=== PATIENT | female | born 1995 | race Caucasian/White ===

== ENCOUNTER 2020-01-10 22:09 | Inpatient (IN) | payer MEDICAID, SELFPAY ==
[2020-01-10 20:23] VITALS: BMI 30.5
[2020-01-10 20:28] LABS: Microscopic, Urine URINE MICROSCOPIC (MICROSCOPIC)
[2020-01-10 20:29] LABS: Appearance,Urine CLEAR (Clear); Bilirubin,Urine Negative (Negative); Blood, Urine 1+ (Negative); Color,Urine YELLOW (Yellow); Glucose,Urine (UA) Negative (Negative); Ketones,Urine Negative (Negative); Leukocyte Esterase,Urine 1+ (Negative); Nitrate,Urine Negative (Negative); PH,Urine 6.5 (5.0-8.5); Protein,Urine TRACE (Negative); Specific Gravity, Urine 1.025 (1.005-1.030); Urobilinogen,Urine 0.2 EU/dl (0.2)
[2020-01-10 20:37] LABS: Bacteria,Urine 2+ /lpf; Mucus,Urine 1+ /lpf
[2020-01-10 20:43] LABS: Barbiturates Screen,Urine Negative ng/ml (<200)
[2020-01-10 20:44] LABS: Benzodiazepines Screen,Urine Negative ng/ml (<200)
[2020-01-10 20:45] LABS: Amphetamine/Metha Screen,Urine Negative ng/ml (<1000); Cocaine Screen,Urine Negative ng/ml (<300)
[2020-01-10 20:46] LABS: Methadone Screen,Urine Negative ng/ml (<300)
[2020-01-10 20:47] LABS: Cannabinoid Screen,Urine Negative ng/ml (<50); Opiate Screen,Urine Negative ng/ml (<300)
[2020-01-10 20:48] LABS: Phencyclidine Screen,Urine Negative ng/ml (<25)
[2020-01-10 21:50] LABS: Basophils # 0.1 K/mm3 (0-0.2); Basophils % 0.6 % (0.1-2.0); Eosinophils % 0.3 % (0.1-12.0); Hematocrit 34.2 % (37.0-47.0); Hemoglobin 10.9 g/dL (12.2-16.2); Lymphocytes # 1.8 K/mm3 (0.7-4.5); Lymphocytes % 14.6 % (10-50); Mean Corpuscular HGB Conc 31.9 g/dL (31.8-35.4); Mean Corpuscular Hemoglobin 28.7 pg (27.0-31.2); Mean Corpuscular Volume 89.8 fl (81-99); Mean Platelet Volume 8.8 fl (7.4-10.4); Monocytes # 0.6 K/mm3 (0.1-1.0); Neutrophils # 9.9 K/mm3 (1.8-7.8); Neutrophils % 79.5 % (37.0-80.0); Platelet Count 224 K/mm3 (142-424); Red Blood Count 3.81 M/mm3 (4.20-5.40); Red Cell Distribution Width 14.9 % (11.5-17.5); White Blood Count 12.5 K/mm3 (4.8-10.8)
[2020-01-10 21:54] LABS: Chloride 103 mmol/L (98-107); Potassium 3.8 mmoL/L (3.5-5.1); Sodium 134 mmol/L (136-145)
[2020-01-10 21:57] LABS: Alanine Aminotransferase 13 U/L (12-78); Anion Gap 10.8 mEq/L (5-15); Aspartate Amino Transferase 28 U/L (14-36); Blood Urea Nitrogen 7 mg/dl (7-17); Calcium 8.9 mg/dl (8.4-10.2); Carbon Dioxide 24 mmol/L (22.0-30.0); Creatinine Clearance Estimated 225 mL/min (50-200); Estimated Glomerular Filt Rate 154 ml/min (>60); GFR (African American) 187 ML/MIN (>60); Glucose 112 mg/dl (74-100); Uric Acid 2.3 mg/dl (2.5-6.2)
[2020-01-10 22:07] LABS: Activated Partial Thrombo Time 22.2 seconds (23.6-34.0); Fibrinogen 434 mg/dL (204-500); Prothrombin Time 9.4 seconds (9.4-11.8)
[2020-01-10 22:23] LABS: D-Dimer 1690 ng/mL (0-400)
[2020-01-11 01:32] VITALS: BP 145/83; PULSE 128; RESP 18; TEMP 36.8; O2SAT 99; BMI 30.5
--- NOTE | 2020-01-11 09:50 | HMH.OBAPHP ---
OB - H&P: HPI Antepartum - History of Present Illness Chief complaint: labor, history of -induced hypertension. Comments: She is a 24-year-old 6 para 2 aborta 3 who is 37+ weeks gestational age. She came in with regular contractions every 2 minutes. She has been followed at [facility] and they initially thought she might have hydrocephalus with increased ventricular size and the baby's brain. She was however seen at and they said that the anatomy scan was perfectly normal and there was no evidence of ventriculomegaly. She has had labor and went to [place] and she said they did not seem to want to do anything for her. As a result of that she had an appointment with me today. She arrived last night having regular contractions every 2 minutes. We gave her IV fluids as well as a shot of Brethine and her contractions continued. As result of that we elected to watch her overnight. She has changed her cervix from 2-3 to 4+ centimeters dilated. As result of her changes in the cervix we are going to deliver her. She has had a previous early delivery. She has had a history of PIH. Her blood pressure is slightly elevated on arrival. Laboratory investigations were normal. - History of Present Criteria for establishing EDC:: LMP confirmed by 2nd trimester US care: good care Ultrasounds: normal mid trimester US Obstetrical complications: gestational hypertension Medical complications: other - Labs Blood type: O (+) positive Rubella: immune RPR/VDRL: nonreactive GBS status: negative HBsAG: negative [facility]H History *Have you ever received a pneumonia vaccine?: No *Have you received a flu vaccine this season?: No Other Surgeries: No: - *Social History Alcohol Intake: never Substance Use Type: denies use *Occupational Status:: unemployed *Travel in the last 8 weeks: None Family Hx:: No significant family history Para: 2 Review of Systems - Review of Systems Review of systems:: pertinent systems reviewed and negative unless documented below Meds Home Medications Medication Instructions Recorded Confirmed Type Multivitamin [Flintstones] 1 tab PO DAILY 01/10/20 01/10/20 History Allergies Allergy/AdvReac Type Severity Reaction Status Date / Time citalopram [From Celexa] Allergy Intermediate Verified 01/10/20 20:23 OB - H&P: Exam - Physical Exam Vital signs: Temp Pulse Resp BP Pulse Ox 98.3 F 128 H 18 145/83 H 99 01/11/20 01:32 01/11/20 01:32 01/11/20 01:32 01/11/20 01:32 01/11/20 01:32 - Constitutional no acute distress - Routine HEENT Exam Head: Present: normocephalic Eye: Present: EOMI, PERRL ENT: Present: mucous membranes moist - Routine Neck Exam Present: supple, full ROM - Routine Respiratory Exam Absent: accessory muscle use (good air entry bilaterally), respiratory distress, wheezes, crackles - Routine Cardiovascular Exam Present: RRR. Absent: murmur - Routine Abdominal Exam Present: soft, normoactive bowel sounds. Absent: tenderness, distended, guarding - Routine Rectal Exam Patient deferred: visual exam, digital exam - Routine Exam Patient deferred: external exam, groin exam, perineal exam - Routine Extremities Exam Present: full ROM. Absent: cyanosis, edema - Routine Skin Exam Present: intact. Absent: cyanosis - Routine Neurological Exam Present: alert, oriented X3 - Routine Psychiatric Exam Present: normal affect OB - Results - Labs Labs: Short CBC 01/10/20 Range/Units 21:23 WBC 12.5 H (4.8-10.8) K/mm3 Hgb 10.9 L (12.2-16.2) g/dL Hct 34.2 L (37.0-47.0) % Plt Count 224 (142-424) K/mm3 BMP 01/10/20 21:23 Sodium 134 L Potassium 3.8 Chloride 103 Carbon Dioxide 24 BUN 7 Creatinine 0.50 L Glucose 112 H Calcium 8.9 Liver Function 01/10/20 Range/Units 21:23 AST 28 (14-36) U/L ALT 13 (12-78) U
--- NOTE | 2020-01-11 11:20 | HMH.ANESCL ---
[facility] Anesthesia Checklist - Patient Identification Patient Identification: Arm Band - Structural Data Admitted From: Inpatient Planned Operative Procedure/s: labor epidural Consent for Planned Operative Procedure(s) Verified: Yes Verified Documents: Surgical Consent, History and Physical - NPO Status Verified Time NPO: 00:00 - Additional verifications Anesthesia Reactions: No - Airway Assessment C-Spine Mobility Assessed: Yes TMJ Mobility Assessed: Yes Dentition: Good Dentition - Neurological Assessment Level of Consciousness: Awake, Alert - Anesthesia Plan Anesthesia Risk discussed: Yes Anesthesia Plan: Verified ASA Class: II Anesthesia Type: Epidural [facility] History I have reviewed the patient's past medical history: Yes *Have you ever received a pneumonia vaccine?: No *Have you received a flu vaccine this season?: No Anesthesia experience/problems:: nac Other Surgeries: No: - *Social History Alcohol Intake: never Substance Use Type: denies use *Occupational Status:: unemployed *Travel in the last 8 weeks: None Family Hx:: No significant family history Para: 2
--- NOTE | 2020-01-11 11:50 | HMH.LABNOT ---
Labor Note - Subjective: Date: 01/11/20 Time: 11:30 regular contraction - Objective: NST:: Reactive Contractions:: every 2-3 minutes Cervical Dilation:: 6-7 Effacement:: 75% Station: -2 Membranes: artificially ruptured - Fetus: Monitoring?: Yes monitoring type:: Internal - Assessment: Labor progressing?: Yes Cephalopelvic disproportion?: No Patient Problems: All Active Problems labor in third trimester (Acute) History of induced hypertension (Acute) Normal delivery (Acute) - Plan: Anesthesia for epidural?: Yes Continue to labor down?: Yes Plan for ?: No Continue to monitor?: Yes Start pushing?: No
--- NOTE | 2020-01-11 13:48 | HMH.LABNOT ---
Labor Note - Subjective: Date: 01/11/20 Time: 13:48 regular contraction - Objective: NST:: Reactive Contractions:: every 2-3 minutes Cervical Dilation:: 9-10 Effacement:: 100% Station: 0 Membranes: artificially ruptured - Fetus: Monitoring?: Yes monitoring type:: Combination - Assessment: Labor progressing?: Yes Cephalopelvic disproportion?: No Patient Problems: All Active Problems labor in third trimester (Acute) History of induced hypertension (Acute) Normal delivery (Acute) - Plan: Anesthesia for epidural?: Yes Continue to labor down?: Yes Plan for ?: No Continue to monitor?: Yes Start pushing?: Yes Continue pushing?: Yes
--- NOTE | 2020-01-11 14:17 | HMH.DN ---
- Delivery Note Delivery Date:: 01/11/20 Delivery Time:: 14:09 Anesthesia Type: Epidural Was labor medically induced?: No Induction method: none delivered prior to 39 weeks?: Yes Justification for early elective delivery:: Active Labor, Gestational Hypertension Infant Gender: Male at 1 minute: 8 at 5 minutes: 9 AF:: clear Delivery Procedure:: She is a 24-year-old 6 para 2 aborta 3 who is 37 weeks gestational age. She came in in early labor and progressed overnight. She went from 3 to 4 cm. She had been 2 cm last week in [place]. As result of that we elected to augment her labor. She was started on IV oxytocin had her membranes ruptured. She progressed under labor epidural to full dilation and delivered spontaneously a liveborn male child at 2:09 PM in the afternoon of January 11, 2020. On deliver the head it was noted that there was a loose nuchal cord. This was easily reduced followed by the anterior shoulder and the rest the mid body atraumatically. The oropharynx and nasopharynx were bulb suctioned. The baby was vigorous. We allowed the cord to continue to pulsate for approximately 1 minute. The cord was then doubly clamped and cut and the was handed off to the nurses who assigned Apgars of 8 at 1 minute and 9 at 5 minutes. We then obtained cord blood as well as cord pH. The patient currently pending. Using gentle traction on the cord and countertraction the fundus I was able to easily deliver the placenta intact at 2:14 PM. Had a normal three-vessel cord. There were no perineal or vaginal lacerations. She has O Rh+ blood, she is rubella immune and was group B streptococcus negative. She plans to breast-feed. Her consolidator is Dr. Lafleur. Estimated blood loss was approximately 400 cc. Placental Delivery Description: Spontaneous
[2020-01-11 14:24] LABS: Cord Blood PH 7.15 (7.35-7.45)
[2020-01-12 07:34] LABS: Hemoglobin 10.5 g/dL (12.2-16.2)
[2020-01-12 08:00] VITALS: BP 122/69; PULSE 78; RESP 18; TEMP 37; O2SAT 98
--- NOTE | 2020-01-12 08:26 | HMH.ACPN2 ---
Internal Medicine - PN: Subj *Date: 01/12/20 *Time: 08:26 Interval history: She is doing well this morning. She is eating and drinking and ambulating. She is breast-feeding. Her lochia is normal. She does have some swelling in her perineum. Exam Vital signs and Labs for Last 24 Hours: Temp Pulse Resp BP Pulse Ox 98.6 F 78 18 122/69 98 01/12/20 08:00 01/12/20 08:00 01/12/20 08:00 01/12/20 08:00 01/12/20 08:00 Laboratory Results - last 24 hr 01/11/20 14:20: Cord ABG pH 7.15 L* 01/12/20 06:35: Hgb 10.5 L, Hct 33.0 L I & O for Last 24 hours: Intake & Output 01/09/20 01/10/20 01/11/20 01/12/20 11:59 11:59 11:59 11:59 Weight 178 lb Microbiology Reports for the Last 24 Hours: Microbiology 01/10/20 19:32 Urine,Clean Catch Urine Culture - Preliminary NO GROWTH AFTER 24 HOURS - Constitutional no acute distress - *Routine HEENT Exam Head: Present: normocephalic Assessment and Plan (1) labor in third trimester Current visit: Yes Status: Acute Category: Medical Code(s): O60.03 - labor without delivery, third trimester (2) History of induced hypertension Current visit: Yes Status: Acute Category: Medical Code(s): Z87.59 - Personal history of other complications of , childbirth and the puerperium (3) Normal delivery Current visit: Yes Status: Acute Category: Medical Code(s): O80 - Encounter for full-term uncomplicated delivery - Assessment and plan all Dx Assessment and Plan for all problems:: She is doing very well. We will plan to send her home tomorrow.
[2020-01-12 12:18] VITALS: BP 119/71; PULSE 79; RESP 18; TEMP 36.8; O2SAT 100
--- NOTE | 2020-01-12 13:32 | SW/DCPLANNER ---
RECEIVED REFERRAL FOR THIS PATIENT THAT HAS BEEN SEEING 2 DIFFERENT OB DOCTORS AND WAS INCONSISTENT WITH HER HISTORY AND HAS ONLY HAD 4 VISITS TO .. PATIENT HAS BEEN TO [facility] AND THEN WAS IN [place] AND HAS NOW DELIVERED HERE AT [facility].. SHE DELIVERED A LIVE BORN MALE, SHE HAS 3 OTHER CHILDREN, 2 FOUR YRS OLDS, 1 YR OLD AND NOW A . SHE STATED SHE IS AND BOTH INFANT AND PATIENTS UDS WERE NEGATIVE. A CORD WAS COLLECTED AND SENT OFF TO LAB TO CHECK FOR ANY TYPE OF DRUGS.. PATIENT STATED SHE DOES NOT GET WIC SERVICES AND PLANS TO BREASTFEED. SHE SAID SHE HAS EVERYTHING SHE NEEDS, CARSEAT, CLOTHES AND A BED FOR THE INFANT TO SLEEP IN... I HAVE ENCOURAGED HER TO SIGN UP FOR WIC SERIVCES SINCE SHE HAS ANOTHER SMALL CHILD....I DID MAKE A REPORT TO [facility] AND SPOKE WITH JOSE AND ID # [id number].. I WILL FOLLOW UP WITH [facility] TO SEE IF CASE WAS ACCEPTED PRIOR TO DISCHARGE...
[2020-01-12 19:38] VITALS: BP 118/66; PULSE 81; RESP 18; TEMP 36.8; O2SAT 98
[2020-01-13 00:15] VITALS: BP 120/77; PULSE 71; RESP 18; TEMP 36.8; O2SAT 99
[2020-01-13 03:50] VITALS: BP 109/65; PULSE 75; RESP 18; TEMP 37.1; O2SAT 98
[2020-01-13 07:30] VITALS: BP 122/74; PULSE 58; RESP 18; TEMP 36.7; O2SAT 100
--- NOTE | 2020-01-13 09:25 | P.DS_ITS ---
General - General Admission date:: 01/10/20 Discharge date: 01/13/20 HPI HPI: She is a 24-year-old 6 now para 3 aborta 3 who was 37+ weeks gestational age. She came in in active labor. Hospital Course Hospital Course: She was admitted in active labor and we tried to stop her labor but despite tocolytics she progressed. Overnight she progressed and as result of that we elected to augment her labor. She has been followed at as well as [facility]. She has not seen me prior to this. On the day of admission she had an appointment with me. She was started on IV oxytocin had her membranes ruptured and progressed to full dilation. She delivered spontaneously a liveborn male child at 2:04 PM in the afternoon of January 11, 2020. Baby weighed 6 pounds 14 ounces and was 18-1/2 inches long. He had Apgars of 8 at 1 minute and 9 at 5 minutes. She has done well and has remained afebrile third hospitalization. She is eating and drinking and ambulating. She is breast-feeding. Her lochia is normal. She has O Rh positive blood. She is rubella immune and was group B streptococcus negative. Her glass beveller Dr. Lafleur. She is discharged home to follow-up with me in approximately 2 weeks time. She will continue with her vitamins and iron. She was given the usual instructions with respect to limiting her activity, driving and sexual activity. Her condition on discharge is stable. Rhogam Administration: Not Indicated Objective Vital signs: Temp Pulse Resp BP Pulse Ox 98.0 F 58 L 18 122/74 100 01/13/20 07:30 01/13/20 07:30 01/13/20 07:30 01/13/20 07:30 01/13/20 07:30 no acute distress - *Routine HEENT Exam Head: Present: normocephalic Eye: Present: EOMI, PERRL ENT: Present: mucous membranes moist DS: Diagnosis - Discharge Diagnosis (1) labor in third trimester Status: Acute (2) History of induced hypertension Status: Acute (3) Normal delivery Status: Acute Discharge Plan - Patient Discharge Instructions ACTIVITY: No heavy lifting DIET: continue same diet Additional Instructions: nothing in the vagina for 6 weeks, no strenuous activity or heavy lifting Patient Instructions: Depression, Hemorrhage, DI for Labor and Delivery, Vaginal , DI for Pre-eclampsia, Preventing the Spread of Coronavirus Discharge Instructions - Follow up Plan Follow up with: Russel Rea MD [Primary Care Provider] - Disposition: Home, Self-[facility] Medications: Home Medications Medication Instructions Recorded Confirmed Type Multivitamin [Flintstones] 1 tab PO DAILY 01/10/20 01/10/20 History Prescriptions/Medication Reconciliation: Continued Multivitamin [Flintstones] 1 tab PO DAILY - Problem Reconciliation Problems Reviewed?: Yes
== END 2020-01-13 11:10 | disposition home or self-care (01) | DRG 807 ==
LOC: OBOUT 22:14 → OB 22:14
PROVIDERS: Admitting Provider Nurse Practitioner Obstetrics & Gynecology; PCP Nurse Practitioner Obstetrics & Gynecology; Visit Provider Nurse Practitioner Obstetrics & Gynecology
DX: O69.81X0 Labor and delivery complicated by cord around neck, without compression, not applicable or unspecified (principal); Z37.0 Single live birth; Z3A.37 37 weeks gestation of pregnancy; O13.3 Gestational [pregnancy-induced] hypertension without significant proteinuria, third trimester
CPT/HCPCS: 59409; 36415; 59025; 80048; 80305; 81001; 82800; 84450; 84460; 84550; 85014; 85018; 85025; 85378; 85384; 85610; 85730; 86850; 87086; 94761; 96360; C1758

== ENCOUNTER → 2021-08-27 17:56 | Outpatient (CLI) | payer MEDICAID, SELFPAY ==
[2021-08-30 16:23] LABS: Neisseria gonorrhoeae, NAA Negative (Negative)
--- NOTE | 2021-09-05 16:08 | INFXCTL.NOTE ---
Confirmed with Dr. Rea's office, patient rec'd treatment for positive chlamydia: azithromycin 1000mg .
== END ==
PROVIDERS: Visit Provider Nurse Practitioner Obstetrics & Gynecology
DX: Z72.51 High risk heterosexual behavior (principal)
CPT/HCPCS: 87491; 87591

== ENCOUNTER → 2022-03-04 14:26 | Outpatient (CLI) | payer MEDICAID, SELFPAY ==
--- NOTE | 2022-03-04 14:35 | US_ITS ---
FINAL REPORT CLINICAL HISTORY: IUD Placement FINDINGS: Transvaginal sonographic images of the pelvis were obtained. The uterus measures 8.4 x 5.8 x 4.5 cm. The endometrium measures 7 mm, which is within normal limits. An IUD is present the uterus. No uterine masses identified. The right ovary measures 3.3 cm in length and left ovary measures 2.7 cm in length. Normal blood flow seen to the ovaries. Small follicles are present. There is no evidence of free fluid. There is no evidence of a gestational sac. IMPRESSION: IUD is present within the uterus. No evidence of a gestational sac. Reviewed, Interpreted and Dictated by Hadley Lopez III, MD Transcribed by Ruba Ge Authenticated and [facility]
[2022-03-04 16:29] LABS: HCG,Quantitative < 2 mIU/ml (0-5.42)
== END ==
PROVIDERS: PCP Pediatrics; Visit Provider Obstetrics & Gynecology
DX: R10.2 Pelvic and perineal pain (principal); Z32.01 Encounter for pregnancy test, result positive
CPT/HCPCS: 36415; 76830; 84702

== ENCOUNTER 2024-04-15 16:40 | Outpatient (CLI) | payer MEDICAID, SELFPAY | END 2024-04-15 23:59 | disposition home or self-care (01) | LOC: LAB.DROPOF 16:40 | PROVIDERS: PCP Obstetrics & Gynecology; Visit Provider Obstetrics & Gynecology | DX: Z34.90 Encounter for supervision of normal pregnancy, unspecified, unspecified trimester (principal) | CPT/HCPCS: 87086 ==

== ENCOUNTER 2024-04-22 14:58 | Outpatient (CLI) | payer MEDICAID, SELFPAY ==
--- NOTE | 2024-04-22 15:07 | US_ITS ---
PROCEDURE: US OB <= 14 WEEKS FETUS CLINICAL INDICATION: Dates and confirm viability COMPARISON: US US TRANSVAGINAL from 03/04/2022 FINDINGS: Transvaginal sonographic images of the pelvis were obtained. From her last menstrual period she is 7weeks. An intrauterine gestational sac is present with a pole with a crown-rump length of 0.5cm This correlates to a gestational age of 6weeks 2days. heart tones are present with an FHR of 115bpm. Yolk sac is noted. The yolk sac measures 3.4mm. The right ovary is seen and appears normal. There are multiple small peripheral follicles. The left ovary is seen and appears normal. Multiple small follicles. Likely collapsed corpus luteum on the left ovary. There is no fluid in the cul-de-sac. IMPRESSION: 1. Viable fetus within the uterine cavity. There is heart rate activity. 2. The fetus measures 6 weeks 2 days. 3. Both ovaries are seen and appear normal. They have multiple small follicles. 4. Her due date should be revised based on this ultrasound. Her revised MARIA will be December 14, 2024. Dictated by: Russel Rea MD 04/23/2024 08:33 Russel Rea MD in [place] 04/23/2024 08:33
== END 2024-04-22 23:59 | disposition home or self-care (01) ==
LOC: RAD 14:59
PROVIDERS: Visit Provider Obstetrics & Gynecology
DX: O36.80X0 Pregnancy with inconclusive fetal viability, not applicable or unspecified (principal)
CPT/HCPCS: 76801

== ENCOUNTER 2024-05-11 10:28 | Outpatient (CLI) | payer MEDICAID, SELFPAY ==
[2024-05-11 11:08] LABS: Basophils # 0.1 K/mm3 (0-0.2); Basophils % 0.5 % (0.1-2.0); Eosinophils # 0.1 K/mm3 (0.0-0.4); Eosinophils % 1.3 % (0.1-12.0); Hematocrit 39.2 % (37.0-47.0); Hemoglobin 12.9 g/dL (12.2-16.2); Lymphocytes # 1.9 K/mm3 (0.7-4.5); Mean Corpuscular HGB Conc 32.9 g/dL (31.8-35.4); Mean Corpuscular Hemoglobin 31.2 pg (27.0-31.2); Mean Corpuscular Volume 95.1 fl (81-99); Mean Platelet Volume 8.2 fl (7.4-10.4); Monocytes # 0.3 K/mm3 (0.1-1.0); Monocytes % 3.5 % (1.7-9.3); Neutrophils # 6.6 K/mm3 (1.8-7.8); Neutrophils % 73.7 % (37.0-80.0); Platelet Count 247 K/mm3 (142-424); Red Blood Count 4.12 M/mm3 (4.20-5.40); Red Cell Distribution Width 13.4 % (11.5-17.5); White Blood Count 8.9 K/mm3 (4.8-10.8)
[2024-05-11 11:53] LABS: Albumin Level 4.3 g/dl (3.5-5.0); Chloride 106 mmol/L (98-107); Potassium 4.1 mmoL/L (3.5-5.1); Sodium 134 mmol/L (136-145)
[2024-05-11 11:56] LABS: Alanine Aminotransferase 12 U/L (12-78); Albumin/Globulin Ratio 1.4 (1.1-1.8); Alkaline Phosphatase 62 U/L (38-126); Anion Gap 10.1 mEq/L (5-15); Aspartate Amino Transferase 25 U/L (14-36); Bilirubin,Total 0.7 mg/dl (0.2-1.3); Blood Urea Nitrogen 9 mg/dl (7-17); Carbon Dioxide 22 mmol/L (22.0-30.0); Estimated Glomerular Filt Rate 100 ml/min (>60); GFR (African American) 121 ML/MIN (>60); Glucose 84 mg/dl (74-100); Total Protein,Serum 7.3 g/dl (6.3-8.2)
[2024-05-11 12:55] LABS: Activated Partial Thrombo Time 26.6 seconds (22.8-30.6); Fibrinogen 356 mg/dL (229.9-363.5); INR 0.88 (0.9-1.1)
[2024-05-11 13:11] LABS: Uric Acid 2.4 mg/dl (2.5-6.2)
[2024-05-12 09:21] LABS: HCV Ab Non Reactive (Non Reactive); Hepatitis B Surface Antigen Negative (Negative)
[2024-05-12 13:08] LABS: Rubella Antibodies, IgG 1.81 index (Immune >0.99)
[2024-05-12 14:13] LABS: Rapid Plasma Reagin Ab Titer Non Reactive titer (NonRea<1:1)
[2024-05-13 11:19] LABS: HIV (1&2) Antibody Rapid NONREACTIVE (NONREACTIVE)
== END 2024-05-11 23:59 | disposition home or self-care (01) ==
LOC: LAB 10:28
PROVIDERS: Visit Provider Obstetrics & Gynecology
DX: O09.891 Supervision of other high risk pregnancies, first trimester (principal); O09.291 Supervision of pregnancy with other poor reproductive or obstetric history, first trimester; Z3A.09 9 weeks gestation of pregnancy
CPT/HCPCS: 36415; 80048; 80053; 84450; 84460; 84550; 85025; 85384; 85610; 85730; 86593; 86762; 86850; 87340

== ENCOUNTER 2024-05-16 14:00 | Outpatient (CLI) | payer MEDICAID, SELFPAY ==
[2024-05-16 18:05] LABS: Total Protein 24 Hour,Urine 122 mg/24 hr (40-90); Total Volume,Urine 1350 mL (600-1600)
== END 2024-05-16 23:59 | disposition home or self-care (01) ==
LOC: LAB 14:01
PROVIDERS: Visit Provider Obstetrics & Gynecology
DX: Z34.90 Encounter for supervision of normal pregnancy, unspecified, unspecified trimester (principal)
CPT/HCPCS: 84155

== ENCOUNTER 2024-06-08 08:07 | Outpatient (CLI) | payer MEDICAID, SELFPAY ==
--- NOTE | 2024-06-08 08:10 | CA_ITS ---
APPROVED REPORT EXAM: Comprehensive 2D, Doppler, and color-flow Echocardiogram Cellophaner: Meredith Hay CRT Ht: 5 ft 4 in Wt: 143lbs BSA: 1.70 BP: 109/67 mmHg Indications: Shortness of Breath, 12 WKS w #5, Pt becomes very SOB post- with past pregnancies. 2D Dimensions LA Volume 24.70 mL LA Volume Index 14.20 mL/m2 (M/F) 16-34 M-Mode Dimensions RVDd 2.08 cm (0.9-2.6) LA Diam 3.25 cm (1.9-4.0) LVDd 5.00 cm (3.5-5.7) LVDs 3.09 cm (3.5-5.7) IVSd 1.02 cm (0.6-1.1) PWd 0.65 cm (0.6-1.1) EF (Teich) 68.20% FS 38.20% EDV (Teich) 118.20 mL TAPSE 1.18 (<1.7) ESV (Teich) 37.60 mL LV Diastology E Decel Time 190 (160-240 msec) E/A Ratio 1.11 MED A' 12.90 cm/s LAT A' 7.80 cm/s Aortic Valve AO Peak GR. 8.80 mmHg Mitral Valve MV E Max Qasim. 93.0 (40-130 cm/s) MV A Velocity 84.0 (40-130 cm/s) E/A Ratio 1.11 MV PHT 56.0 ms Pulmonary Valve PV Peak Velocity 117.0 (50-150 cm/s) Tricuspid Valve TR P. Velocity 225.00 cm/s RAP Estimate 10.00 mmHg RVSP 30.20 mmHg Left Ventricle The left ventricle is normal size. The left ventricular systolic function is normal. The left ventricular ejection fraction is within the normal range. There is normal left ventricular wall thickness. There is normal LV segmental wall motion. The left ventricular diastolic function is normal. LVEF is 55%. Right Ventricle The right ventricle is normal size. The right ventricular systolic function is normal. Atria The left atrium size is normal. The right atrium size is normal. There is no Doppler evidence of interatrial shunt. Aortic Valve The aortic valve opens well. There is no aortic valvular stenosis. No aortic regurgitation is present. Mitral Valve The mitral valve is normal in structure. No evidence of mitral valve stenosis. There is no mitral valve regurgitation noted. Tricuspid Valve The tricuspid valve leaflets are thin and pliable. Mild tricuspid regurgitation. RVSP is normal. Pulmonic Valve The pulmonary valve is normal in structure. Trace pulmonic regurgitation. Great Vessels The aortic root is normal in size. The ascending aorta is normal in size. IVC is normal in size and collapses >50% with inspiration. Pericardium There is no pericardial effusion. Other Information Study Quality: Adequate Conclusion Normal biventricular systolic function. Mild TR. Electronically signed by : Yuly Urrutia MD 06/08/2024 10:47:44
== END 2024-06-08 23:59 | disposition home or self-care (01) ==
LOC: RT 08:08
PROVIDERS: Visit Provider Physician Assistant
DX: R42 Dizziness and giddiness (principal); R06.09 Other forms of dyspnea
CPT/HCPCS: 93306

== ENCOUNTER 2024-06-29 12:48 | Outpatient (CLI) | payer MEDICAID, SELFPAY ==
--- NOTE | 2024-06-29 12:48 | US_ITS ---
PROCEDURE: US OB FOLLOW UP CLINICAL INDICATION: 16 wks-check cervical length COMPARISON: US US OB <= 14 WEEKS FETUS from 04/22/2024 FINDINGS: Transabdominal sonographic images of the pelvis were obtained. The following parameters are obtained: From her established due date she is 16weeks 2days Viable fetus in the cephalic presentation with an anterior placenta grade 1. The placenta measures 2.97 cm from the internal cervical os. There is a small amount of sludge in the lower uterine segment within the amnion. Possible blood. The cervix measures 3.43 cm transvaginally. There is a small amount of echogenic material within the amnion in the lower uterine segment when seen transvaginally. heart rate: 143bpm bpm. BPD: 17weeks 1day HC: 16weeks 5days AC: 16weeks 3days FL: 16weeks HC/AC: 1.24 FL/BPD: 0.56 FL/AC: 0.19 Growth percentile: 41 Amniotic fluid: MVP 3.40 cm. No obvious anomalies evident. profile seen, stomach, bladder, kidneys, three-vessel cord, four chamber heart appear normal. IMPRESSION: 1. Viable fetus in the cephalic presentation with an anterior placenta grade 1. 2. The fluid is within normal limits MVP 3.40 cm. 3. There has been good interval growth with the fetus 41st percentile. 4. There is a small amount of echogenic material within the lower amnion adjacent to the cervix. There is also thickening of the amnion here that could represent a collection particulate matter. 5. The cervix is 3.43 cm in length measured transvaginally. 6. Suggest repeat scan at 20 weeks for complete anatomy. Dictated by: Russel Rea MD 06/29/2024 17:19 Russel Rea MD in [place] 06/29/2024 17:19
== END 2024-06-29 23:59 | disposition home or self-care (01) ==
LOC: RAD 12:48
PROVIDERS: PCP Obstetrics & Gynecology; Visit Provider Obstetrics & Gynecology
DX: Z36.86 Encounter for antenatal screening for cervical length (principal); O09.292 Supervision of pregnancy with other poor reproductive or obstetric history, second trimester; O09.892 Supervision of other high risk pregnancies, second trimester; Z3A.16 16 weeks gestation of pregnancy
CPT/HCPCS: 76816

== ENCOUNTER 2024-07-29 13:09 | Outpatient (CLI) | payer MEDICAID, SELFPAY ==
--- NOTE | 2024-07-29 13:13 | US_ITS ---
PROCEDURE: US OB /MATERNAL DETAIL CLINICAL INDICATION: 20 week + Anatomy Scan-US OB Complete COMPARISON: US US OB <= 14 WEEKS FETUS from 04/22/2024 US US OB FOLLOW UP from 06/29/2024 FINDINGS: Transabdominal sonographic images of the pelvis were obtained. From her established due date she is 20 weeks 4 days. Single viable intrauterine gestation. Cephalic position. Placenta: Anteriorplacenta grade 1. There are several placental lakes seen. Placenta is no longer low lying. There is an average amount of fluid. The cervix appears satisfactory. Closed and measuring 2.88 cm in length. Complete survey performed and was unremarkable on the submitted images as in PACS. No discrete anomalies identified on survey imaging by technologist. Active fetus. Three-vessel cord with satisfactory umbilical cord insertion. 4- chamber heart noted. Situs, aortic arch, LVOT, RVOT, three-vessel view appear normal. Survey of brain & ventricles Unremarkable. Cerebellum, thalamus, choroid plexus, cisterna magna appear normal. Face and neck survey unremarkable. Profile, nasion, lips and nose appeared normal. Diaphragm and chest views unremarkable. Abdomen: Both kidneys noted and unremarkable. Stomach and bladder noted and satisfactory. Spine: Survey of the spine satisfactory with no anomalies identified nor imaged. Cervical, thoracic, lower spine appear normal. Both arms and legs noted. Amniotic Fluid: Adequate. MVP 3.46 cm Measurements: Average ultrasound age 21weeks 0 days. Estimated due date by ultrasound age 0412/09/2024. Estimated weight 368g BPD = 21weeks 4days HC = 20weeks 6days AC = 21weeks 1day FL = 20weeks 1day Growth Percentile= 50 Heart Rate = 134bpm Cerebellum = 19weeks 4days Humerus = 21weeks 3days HC/AC is 1.16 FL/BPD is 0.63 FL/AC is 0.2 IMPRESSION: 1. Viable fetus in the cephalic presentation with an anterior placenta grade 1. 2. The fluid is within normal limits MVP 3.46 cm. 3. Anatomical scan appears normal. 4. biometry is consistent with the dates. Dictated by: Russel Rea MD 07/30/2024 08:29 Russel Rea MD in [place] 07/30/2024 08:29
== END 2024-07-29 23:59 | disposition home or self-care (01) ==
LOC: RAD 13:10
PROVIDERS: Visit Provider Obstetrics & Gynecology
DX: O09.292 Supervision of pregnancy with other poor reproductive or obstetric history, second trimester (principal); O09.892 Supervision of other high risk pregnancies, second trimester; Z3A.20 20 weeks gestation of pregnancy; Z36.3 Encounter for antenatal screening for malformations
CPT/HCPCS: 76811

== ENCOUNTER 2024-09-09 21:10 | Outpatient (CLI) | payer MEDICAID, SELFPAY ==
[2024-09-09 21:18] VITALS: BMI 25.9
[2024-09-09 21:32] VITALS: BP 138/69; PULSE 98; RESP 20; TEMP 36.9; O2SAT 97; BMI 25.9
[2024-09-09 21:47] VITALS: BP 133/75; PULSE 103; O2SAT 97
[2024-09-09 22:01] LABS: Microscopic, Urine URINE MICROSCOPIC (MICROSCOPIC)
[2024-09-09 22:04] LABS: Appearance,Urine CLEAR (Clear); Bilirubin,Urine Negative (Negative); Blood, Urine Negative (Negative); Color,Urine YELLOW (Yellow); Glucose,Urine (UA) TRACE (Negative); Ketones,Urine Negative (Negative); Leukocyte Esterase,Urine Negative (Negative); Nitrate,Urine Negative (Negative); Protein,Urine Negative (Negative); Urobilinogen,Urine 0.2 EU/dl (0.2)
[2024-09-09 22:18] LABS: Amphetamine/Metha Screen,Urine Negative ng/ml (<1000); Barbiturates Screen,Urine Negative ng/ml (<200)
[2024-09-09 22:19] LABS: Benzodiazepines Screen,Urine Negative ng/ml (<200)
[2024-09-09 22:20] LABS: Cannabinoid Screen,Urine Negative ng/ml (<50); Cocaine Screen,Urine Negative ng/ml (<300)
[2024-09-09 22:21] LABS: Methadone Screen,Urine Negative ng/ml (<300)
[2024-09-09 22:22] LABS: Opiate Screen,Urine Negative ng/ml (<300); Phencyclidine Screen,Urine Negative ng/ml (<25)
[2024-09-09 22:53] LABS: Basophils # 0.1 K/mm3 (0-0.2); Basophils % 0.8 % (0.1-2.0); Eosinophils # 0.1 K/mm3 (0.0-0.4); Eosinophils % 1.1 % (0.1-12.0); Hematocrit 32.9 % (37.0-47.0); Lymphocytes % 16.6 % (10-50); Mean Corpuscular HGB Conc 33.4 g/dL (31.8-35.4); Mean Corpuscular Hemoglobin 30.8 pg (27.0-31.2); Mean Corpuscular Volume 92.2 fl (81-99); Mean Platelet Volume 10.2 fl (7.4-10.4); Monocytes # 0.9 K/mm3 (0.1-1.0); Monocytes % 7.9 % (1.7-9.3); Neutrophils # 8.2 K/mm3 (1.8-7.8); Neutrophils % 69.8 % (37.0-80.0); Platelet Count 202 K/mm3 (142-424); Red Blood Count 3.57 M/mm3 (4.20-5.40); Red Cell Distribution Width 12.5 % (11.5-17.5); White Blood Count 11.8 K/mm3 (4.8-10.8)
[2024-09-09 22:58] LABS: Albumin Level 3.4 g/dl (3.5-5.0); Chloride 105 mmol/L (98-107); Sodium 135 mmol/L (136-145)
[2024-09-09 23:01] LABS: Alanine Aminotransferase 13 U/L (12-78); Albumin/Globulin Ratio 1.1 (1.1-1.8); Alkaline Phosphatase 77 U/L (38-126); Aspartate Amino Transferase 29 U/L (14-36); Bilirubin,Total 0.3 mg/dl (0.2-1.3); Blood Urea Nitrogen 8 mg/dl (7-17); Carbon Dioxide 23 mmol/L (22.0-30.0); Creatinine Clearance Estimated 152 mL/min (50-200); Estimated Glomerular Filt Rate 120 ml/min (>60); GFR (African American) 145 ML/MIN (>60); Globulin 3.1 g/dL (1.3-3.2); Total Protein,Serum 6.5 g/dl (6.3-8.2)
[2024-09-09 23:02] LABS: Calcium 8.8 mg/dl (8.4-10.2); Glucose 78 mg/dl (74-100)
[2024-09-09 23:04] VITALS: BP 125/76
[2024-09-09 23:07] LABS: Uric Acid 1.9 mg/dl (2.5-6.2)
[2024-09-09 23:20] LABS: Activated Partial Thrombo Time 21.9 seconds (22.8-30.6); Fibrinogen 376 mg/dL (229.9-363.5); INR 0.86 (0.9-1.1); Prothrombin Time 9.8 seconds (10.1-12.5)
[2024-09-10 00:52] LABS: Creatinine,Urine Random 43 mg/dL (Not Estab.)
== END 2024-09-09 23:52 | disposition home or self-care (01) ==
LOC: OBOUT 21:11 → OB 21:12
PROVIDERS: Visit Provider Obstetrics & Gynecology
DX: O26.892 Other specified pregnancy related conditions, second trimester (principal); Z3A.27 27 weeks gestation of pregnancy; R10.31 Right lower quadrant pain
CPT/HCPCS: 36415; 80053; 80307; 81001; 82570; 84156; 84550; 85025; 85384; 85610; 85730; G0463

== ENCOUNTER 2024-09-21 08:43 | Outpatient (CLI) | payer MEDICAID, SELFPAY ==
--- NOTE | 2024-09-21 08:47 | US_ITS ---
PROCEDURE: US OB FOLLOW UP CLINICAL INDICATION: Check Cervical Length-TV COMPARISON: No exams were available for comparison FINDINGS: Transabdominal sonographic images of the pelvis were obtained. The following parameters are obtained: From her established due date she is 28weeks 2days Viable fetus in the cephalic presentation with an anterior placenta grade 1. The cervix measures 2.6-3.7 cm transvaginally. heart rate: 134bpm bpm. BPD: 30weeks 6days, 96 percentile HC: 30weeks 2days, 78 percentile AC: 30weeks 0 days, 87 percentile FL: 28weeks 0 days, 24 percentile HC/AC: 1.07 FL/BPD: 0.68 FL/AC: 0.2 Growth percentile: 78 Amniotic fluid index: 16.3cm, MVP 5.13 cm No obvious anomalies evident. profile seen, stomach, bladder, kidneys, three-vessel cord, four chamber heart appear normal. IMPRESSION: 1. Viable fetus in the cephalic presentation with an anterior placenta grade 1. 2. The fluid is within normal limits with an amniotic fluid index 16.3 cm, MVP 5.13 cm. 3. There has been good interval growth with the fetus currently 78th percentile. 4. Limited anatomical scan appears normal. 5. Transvaginally the cervical length measures 2.6 cm-3.7 cm. 6. In the area where the patient has stretch kee the skin and subcutaneous tissue is thin. Dictated by: Russel Rea MD 09/21/2024 10:49 Russel Rea MD in [place] 09/21/2024 10:49
== END 2024-09-21 23:59 | disposition home or self-care (01) ==
LOC: RAD 08:44
PROVIDERS: Visit Provider Obstetrics & Gynecology
DX: Z36.86 Encounter for antenatal screening for cervical length (principal); O26.873 Cervical shortening, third trimester; O09.893 Supervision of other high risk pregnancies, third trimester; O09.293 Supervision of pregnancy with other poor reproductive or obstetric history, third trimester; Z3A.28 28 weeks gestation of pregnancy
CPT/HCPCS: 76816

== ENCOUNTER 2024-10-01 20:25 | Outpatient (CLI) | payer MEDICAID, SELFPAY ==
[2024-10-01 20:32] VITALS: BMI 28.5
[2024-10-01 20:44] LABS: Microscopic, Urine URINE MICROSCOPIC (MICROSCOPIC)
[2024-10-01 21:03] LABS: Benzodiazepines Screen,Urine Negative ng/ml (<200)
[2024-10-01 21:04] LABS: Amphetamine/Metha Screen,Urine Negative ng/ml (<1000); Barbiturates Screen,Urine Negative ng/ml (<200)
[2024-10-01 21:06] LABS: Methadone Screen,Urine Negative ng/ml (<300)
[2024-10-01 21:07] LABS: Opiate Screen,Urine Negative ng/ml (<300)
[2024-10-01 21:08] LABS: Phencyclidine Screen,Urine Negative ng/ml (<25)
[2024-10-01 21:17] LABS: Cocaine Screen,Urine Negative ng/ml (<300)
[2024-10-01 21:30] VITALS: BP 119/69; PULSE 102; RESP 20; TEMP 36.7; O2SAT 98; BMI 28.5
[2024-10-01 21:39] LABS: Appearance,Urine CLEAR (Clear); Bilirubin,Urine Negative (Negative); Blood, Urine Negative (Negative); Color,Urine YELLOW (Yellow); Glucose,Urine (UA) TRACE (Negative); Ketones,Urine TRACE (Negative); Leukocyte Esterase,Urine Negative (Negative); Nitrate,Urine Negative (Negative); Protein,Urine TRACE (Negative); Specific Gravity, Urine >= 1.030 (1.005-1.030); Urobilinogen,Urine 0.2 EU/dl (0.2)
[2024-10-01 21:54] LABS: Bacteria,Urine Trace /lpf; WBC,Urine Occasional #/hpf (0-3)
[2024-10-01] MEDS: ACETAMINOPHEN 500MG TAB 1000 MG PO (22:10)
[2024-10-01] MEDS: LACTATED RINGERS 1000ML 1,000 ML 999 ML IV (22:11)
[2024-10-01 22:35] LABS: Cannabinoid Screen,Urine Negative ng/ml (<50)
[2024-10-01 22:57] LABS: Fetal Fibronectin (Rapid) Negative (Negative)
== END 2024-10-01 23:40 | disposition home or self-care (01) ==
LOC: OBOUT 20:27 → OB 20:28
PROVIDERS: Visit Provider Obstetrics & Gynecology
DX: O60.03 Preterm labor without delivery, third trimester (principal); Z3A.30 30 weeks gestation of pregnancy; O12.03 Gestational edema, third trimester
CPT/HCPCS: 80307; 81001; 82731; G0463; J7120

== ENCOUNTER 2024-10-11 11:20 | Outpatient (CLI) | payer MEDICAID, SELFPAY ==
[2024-10-11 11:53] LABS: Basophils # 0.1 K/mm3 (0-0.2); Basophils % 0.7 % (0.1-2.0); Eosinophils # 0.2 K/mm3 (0.0-0.4); Eosinophils % 1.7 % (0.1-12.0); Hematocrit 30.9 % (37.0-47.0); Hemoglobin 10.2 g/dL (12.2-16.2); Lymphocytes # 2.3 K/mm3 (0.7-4.5); Lymphocytes % 21.8 % (10-50); Mean Corpuscular Hemoglobin 29.7 pg (27.0-31.2); Mean Corpuscular Volume 90.1 fl (81-99); Mean Platelet Volume 10.4 fl (7.4-10.4); Monocytes # 0.6 K/mm3 (0.1-1.0); Monocytes % 5.6 % (1.7-9.3); Neutrophils % 67.8 % (37.0-80.0); Platelet Count 221 K/mm3 (142-424); Red Blood Count 3.43 M/mm3 (4.20-5.40); Red Cell Distribution Width 12.3 % (11.5-17.5); White Blood Count 10.4 K/mm3 (4.8-10.8)
[2024-10-11 12:00] LABS: Glucose 1 Hour 140 mg/dL (74-100)
[2024-10-11 14:59] LABS: RPR W/RFX Titers Nonreactive (Nonreactive)
--- NOTE | 2024-10-15 23:17 | PC.NURSE ---
Patient called around 5 on 10/15/24 to report a fall with impact directly to her abdomen. Patient reports she has been having BH contractions and those have continued since the fall as well as a sharp and stabbing sensation near her umbilicus through to her back. Discussed with patient that she needs to be evaluated immediately and given her location being in [place], I would recommend her going to the nearest L&D unit as soon as possible. Patient reports she needs to find childcare for her 9 month old and patient educated on risks of a fall and encouraged to be evaluated as soon as possible. Patient verbalized understanding. Dr. Lutz called at [phone] and notified of triage call and RN recommendations.
== END 2024-10-11 23:59 | disposition home or self-care (01) ==
PROVIDERS: Visit Provider Obstetrics & Gynecology
DX: O26.879 Cervical shortening, unspecified trimester (principal)
CPT/HCPCS: 36415; 82947; 85025; 86592

== ENCOUNTER 2024-10-19 18:04 | Outpatient (CLI) | payer MEDICAID, SELFPAY ==
[2024-10-19 18:20] VITALS: BP 115/65; PULSE 103; RESP 18; TEMP 36.7; O2SAT 98
[2024-10-19 19:00] VITALS: BMI 28.3
[2024-10-19] MEDS: LACTATED RINGERS 1000ML 1,000 ML 999 ML IV (19:00)
[2024-10-19 19:01] LABS: Appearance,Urine CLEAR (Clear); Bilirubin,Urine Negative (Negative); Blood, Urine Negative (Negative); Color,Urine YELLOW (Yellow); Glucose,Urine (UA) Negative (Negative); Ketones,Urine Negative (Negative); Leukocyte Esterase,Urine TRACE (Negative); Microscopic, Urine URINE MICROSCOPIC (MICROSCOPIC); Nitrate,Urine Negative (Negative); PH,Urine 6.5 (5.0-8.5); Protein,Urine TRACE (Negative); Specific Gravity, Urine 1.025 (1.005-1.030)
[2024-10-19 19:03] LABS: Albumin Level 3.3 g/dl (3.5-5.0); Chloride 108 mmol/L (98-107); Sodium 133 mmol/L (136-145)
[2024-10-19 19:04] LABS: Basophils # 0.1 K/mm3 (0-0.2); Basophils % 0.5 % (0.1-2.0); Eosinophils # 0.1 K/mm3 (0.0-0.4); Eosinophils % 0.6 % (0.1-12.0); Hemoglobin 9.8 g/dL (12.2-16.2); Lymphocytes % 14.9 % (10-50); Mean Corpuscular HGB Conc 32.7 g/dL (31.8-35.4); Mean Corpuscular Hemoglobin 29.1 pg (27.0-31.2); Mean Platelet Volume 10.9 fl (7.4-10.4); Monocytes # 1.1 K/mm3 (0.1-1.0); Monocytes % 8.2 % (1.7-9.3); Neutrophils # 9.8 K/mm3 (1.8-7.8); Neutrophils % 71.8 % (37.0-80.0); Platelet Count 214 K/mm3 (142-424); Potassium 3.7 mmoL/L (3.5-5.1); Red Blood Count 3.37 M/mm3 (4.20-5.40); Red Cell Distribution Width 12.8 % (11.5-17.5); White Blood Count 13.6 K/mm3 (4.8-10.8)
[2024-10-19 19:06] LABS: Alanine Aminotransferase 16 U/L (12-78); Albumin/Globulin Ratio 1.1 (1.1-1.8); Alkaline Phosphatase 111 U/L (38-126); Anion Gap 9.7 mEq/L (5-15); Aspartate Amino Transferase 38 U/L (14-36); Bilirubin,Total 0.3 mg/dl (0.2-1.3); Blood Urea Nitrogen 6 mg/dl (7-17); Carbon Dioxide 19 mmol/L (22.0-30.0); Estimated Glomerular Filt Rate 148 ml/min (>60); GFR (African American) 179 ML/MIN (>60); Total Protein,Serum 6.3 g/dl (6.3-8.2)
[2024-10-19 19:07] LABS: Calcium 8.1 mg/dl (8.4-10.2); Glucose 96 mg/dl (74-100); Magnesium 1.5 mg/dl (1.6-2.3)
[2024-10-19 19:17] LABS: Amphetamine/Metha Screen,Urine Negative ng/ml (<1000)
[2024-10-19 19:18] LABS: Cannabinoid Screen,Urine Negative ng/ml (<50)
[2024-10-19 19:19] LABS: Barbiturates Screen,Urine Negative ng/ml (<200); Benzodiazepines Screen,Urine Negative ng/ml (<200)
[2024-10-19 19:20] LABS: Cocaine Screen,Urine Negative ng/ml (<300); Methadone Screen,Urine Negative ng/ml (<300)
[2024-10-19 19:21] LABS: Opiate Screen,Urine Negative ng/ml (<300)
[2024-10-19 19:22] LABS: Phencyclidine Screen,Urine Negative ng/ml (<25)
--- NOTE | 2024-10-19 19:24 | US_ITS ---
PROCEDURE INFORMATION: Exam: US , Transvaginal Exam date and time: 10/19/2024 7:30 PM Age: 29 years old Clinical indication: Lmp or gestational age (in weeks): 32 w 2d; Other: Contractions; ; Additional info: Contractions, fell Thursday LABS AND CLINICAL REPORTS: Gestational age (Established): 32 w 2 d Estimated due date (Established): 12/12/2024 TECHNIQUE: Imaging protocol: Real-time transvaginal obstetrical ultrasound of the maternal pelvis with image documentation. Transvaginal imaging was used for better evaluation of the fetus, adnexa, and/or cervix. COMPARISON: US OB FOLLOW UP 09/21/2024 8:49 AM FINDINGS: Gestation: Abraham intrauterine gestation in vertex presentation. heart rate: 142 bpm. heart rate is 142 bpm. MATERNAL: Cervix: Cervical length measures 3.49 cm. The internal and external os of the cervix appears closed with a cervical length measuring 3.6-3.7 cm. There is scant fluid documented within the cervical canal. IMPRESSION: 1. The internal and external os of the cervix appears closed with a cervical length measuring 3.6-3.7 cm. There is scant fluid documented within the cervical canal. 2. heart rate is 142 bpm. 3. Vertex presentation.
[2024-10-19 19:34] LABS: Bacteria,Urine 3+ /lpf; Mucus,Urine 4+ /lpf; Squamous Epithelial Cell,Urine 20-50 #/hpf (0-5)
[2024-10-19] MEDS: NIFEdipine 10MG CAPSULE 10 MG PO (20:34)
[2024-10-19] MEDS: BETAMETHASONE ACET/PHOS 6MG/ML 5ML MDV 12 MG IM (21:29)
[2024-10-19 21:32] LABS: POC Glucose,Bedside 131 (70-110)
== END 2024-10-19 22:00 | disposition home or self-care (01) ==
LOC: OBOUT 18:06 → OB 18:07
PROVIDERS: Visit Provider Obstetrics & Gynecology
DX: O60.03 Preterm labor without delivery, third trimester (principal); Z3A.32 32 weeks gestation of pregnancy; Z79.899 Other long term (current) drug therapy
CPT/HCPCS: 76817; 80053; 80307; 81001; 82962; 83735; 85025; 87086; G0463; J0702; J7120

== ENCOUNTER 2024-10-20 22:49 | Outpatient (CLI) | payer MEDICAID, SELFPAY ==
[2024-10-20 22:57] VITALS: BP 118/78; PULSE 113; RESP 17; TEMP 36.4; O2SAT 99
[2024-10-20] MEDS: BETAMETHASONE ACET/PHOS 6MG/ML 5ML MDV 12 MG IM (23:05)
--- NOTE | 2024-10-20 23:14 | PC.NURSE ---
Pt arrived amublatory at 2254, accompanied by SO and child. Pt denies any needs or concerns and is present for her Celestone injection. at 230 Celestone 12mg IM given to left deltoid, pt tolerated this well. at 230 Pt leaving, ambulatory and accompanied by family.
== END 2024-10-20 23:59 | disposition home or self-care (01) ==
LOC: INF 22:51
PROVIDERS: Visit Provider Nurse Practitioner Obstetrics & Gynecology
DX: O09.899 Supervision of other high risk pregnancies, unspecified trimester (principal); Z3A.00 Weeks of gestation of pregnancy not specified
CPT/HCPCS: 96372; J0702

== ENCOUNTER 2024-11-01 16:48 | Observation (INO) | payer MEDICAID, SELFPAY ==
[2024-11-01 17:15] VITALS: BMI 28.3
[2024-11-01] MEDS: TERBUTALINE SULFATE 1MG/ML VIAL 0.25 MG SUBCUT (17:17)
--- NOTE | 2024-11-01 17:24 | ECG_ITS ---
APPROVED REPORT Exam: Resting ECG HR:113 bpm ECG Measurements Heart Rate 113 AXES NJ 128 P 15 QRSd 77 QRS 17 QT 306 T 32 QTc 373 Conclusion SINUS TACHYCARDIA ABNORMAL RHYTHM ECG UNCONFIRMED REPORT Electronically signed by : Kyle Quintana MD 11/02/2024 08:50:27
[2024-11-01 17:26] LABS: Microscopic, Urine URINE MICROSCOPIC (MICROSCOPIC)
[2024-11-01 17:31] LABS: Appearance,Urine CLEAR (Clear); Bilirubin,Urine Negative (Negative); Blood, Urine Negative (Negative); Color,Urine YELLOW (Yellow); Glucose,Urine (UA) Negative (Negative); Ketones,Urine Negative (Negative); Leukocyte Esterase,Urine Negative (Negative); Nitrate,Urine Negative (Negative); Protein,Urine Negative (Negative); Specific Gravity, Urine 1.025 (1.005-1.030); Urobilinogen,Urine 0.2 EU/dl (0.2)
[2024-11-01 17:46] LABS: Amphetamine/Metha Screen,Urine Negative ng/ml (<1000)
[2024-11-01 17:47] LABS: Barbiturates Screen,Urine Negative ng/ml (<200)
[2024-11-01 17:48] LABS: Benzodiazepines Screen,Urine Negative ng/ml (<200); Cannabinoid Screen,Urine Negative ng/ml (<50)
[2024-11-01 17:49] LABS: Cocaine Screen,Urine Negative ng/ml (<300)
[2024-11-01 17:50] LABS: Methadone Screen,Urine Negative ng/ml (<300); Phencyclidine Screen,Urine Negative ng/ml (<25)
[2024-11-01 17:51] LABS: Opiate Screen,Urine Negative ng/ml (<300)
[2024-11-01] MEDS: LACTATED RINGERS 1000ML 1,000 ML 999 ML IV (17:56)
[2024-11-01 18:00] LABS: Bacteria,Urine 3+ /lpf; Mucus,Urine 2+ /lpf
[2024-11-01 18:07] LABS: Basophils # 0.1 K/mm3 (0-0.2); Basophils % 0.5 % (0.1-2.0); Eosinophils # 0.1 K/mm3 (0.0-0.4); Eosinophils % 0.6 % (0.1-12.0); Hemoglobin 9.7 g/dL (12.2-16.2); Lymphocytes # 2.4 K/mm3 (0.7-4.5); Lymphocytes % 17.6 % (10-50); Mean Corpuscular HGB Conc 32.9 g/dL (31.8-35.4); Mean Corpuscular Hemoglobin 28.9 pg (27.0-31.2); Mean Corpuscular Volume 87.8 fl (81-99); Mean Platelet Volume 10.6 fl (7.4-10.4); Monocytes # 1.1 K/mm3 (0.1-1.0); Neutrophils # 9.3 K/mm3 (1.8-7.8); Platelet Count 183 K/mm3 (142-424); Red Blood Count 3.36 M/mm3 (4.20-5.40); Red Cell Distribution Width 13.7 % (11.5-17.5); White Blood Count 13.5 K/mm3 (4.8-10.8)
--- NOTE | 2024-11-01 18:07 | US_ITS ---
PROCEDURE INFORMATION: Exam: US Biophysical Profile Without Non-Stress Test Exam date and time: 11/01/2024 6:36 PM Age: 29 years old Clinical indication: Other: Decreased movement; TECHNIQUE: Imaging protocol: US biophysical profile without non-stress testing. COMPARISON: US OB TRANSVAGINAL 10/19/2024 7:30 PM FINDINGS: heart rate: 140 bpm Amniotic fluid index: ELIZABETH is 8.37 cm. BIOPHYSICAL PROFILE: breathing (BPP): 2 /2 gross body movement (BPP): 2 /2 tone (BPP): 2 /2 Amniotic fluid (BPP): 2 /2 Biophysical profile score (BPP): 8 /8 MATERNAL ANATOMY: Cervix: Cervical length measures 3.37 cm. IMPRESSION: Biophysical profile score is 8 out of 8.
[2024-11-01 18:16] LABS: Hematocrit 29.5 % (37.0-47.0)
[2024-11-01 18:35] VITALS: BP 124/75; PULSE 117; RESP 20; TEMP 36.8; O2SAT 98; BMI 28.3
[2024-11-01 19:43] VITALS: BP 107/68; PULSE 107; RESP 16; TEMP 36.9; O2SAT 98
[2024-11-01] MEDS: NIFEdipine 10MG CAPSULE 10 MG PO (19:46)
[2024-11-01] MEDS: DEXTROSE 5%-LACTATED RINGERS 1,000 ML 75 ML IV (20:26)
[2024-11-01] MEDS: FAMOTIDINE 20MG TABLET 20 MG PO (20:26)
[2024-11-01] MEDS: ACETAMINOPHEN 500MG TAB 1000 MG PO (20:39)
[2024-11-01] MEDS: DOCUSATE SODIUM 100 MG CAPSULE PO (20:41)
[2024-11-02] MEDS: NIFEdipine 10MG CAPSULE 10 MG PO ×2 (01:42→08:52)
[2024-11-02] MEDS: ACETAMINOPHEN 325MG TAB 650 MG PO (02:29)
[2024-11-02 04:17] VITALS: BP 117/56; PULSE 100; RESP 19; TEMP 36.6; O2SAT 98
[2024-11-02] MEDS: DOCUSATE SODIUM 100 MG CAPSULE PO (08:52)
[2024-11-02] MEDS: FAMOTIDINE 20MG TABLET 20 MG PO (08:52)
[2024-11-02] MEDS: SERTRALINE 50MG TABLET 50 MG PO (09:05)
[2024-11-02 11:51] LABS: Chloride 108 mmol/L (98-107); Sodium 135 mmol/L (136-145)
[2024-11-02 11:52] LABS: Potassium 3.9 mmoL/L (3.5-5.1)
[2024-11-02 11:54] LABS: Alanine Aminotransferase 16 U/L (12-78); Albumin/Globulin Ratio 1.1 (1.1-1.8); Alkaline Phosphatase 109 U/L (38-126); Anion Gap 10.9 mEq/L (5-15); Aspartate Amino Transferase 26 U/L (14-36); Bilirubin,Total 0.2 mg/dl (0.2-1.3); Blood Urea Nitrogen 5 mg/dl (7-17); Carbon Dioxide 20 mmol/L (22.0-30.0); Creatinine Clearance Estimated 200 mL/min (50-200); Estimated Glomerular Filt Rate 148 ml/min (>60); GFR (African American) 179 ML/MIN (>60); Globulin 2.7 g/dL (1.3-3.2); Total Protein,Serum 5.7 g/dl (6.3-8.2)
[2024-11-02 11:55] LABS: Calcium 8.2 mg/dl (8.4-10.2); Glucose 87 mg/dl (74-100); Magnesium 1.6 mg/dl (1.6-2.3)
--- NOTE | 2024-11-02 12:00 | P.HPDS_ITS ---
General Admission date:: 11/01/24 Discharge date: 11/02/24 *Admission Date: 11/01/24 *Chief complaint: contractions *History of present illness: Ama Zhong is a 29-year-old who presented with abdominal pain and suspected to be having contractions. Her cervix was noted to be 2/50/-2 on exam and was unchanged several hours later. She received a dose of terbutaline followed by scheduled nifedipine 10 mg every 6 hours. Patient reports that the nifedipine has completely stopped her contractions. She desires discharge home. She has had steroids approximately 2 weeks ago. Endorses good movement. Denies any other concerns. [facility] Disclaimer: The information contained in this section may have been updated after the patient was seen, as this information can be updated by other users. Medical History Hx of preeclampsia, prior , currently History of anxiety Hx of corrected congenital abnormality of eye Surgical History Hx of wisdom tooth extraction History of placement of ear tubes Family History Other Cancer Diabetes FHx: mental illness Heart attack Social History (Updated 11/01/24 @ 21:58 by Lorena Brink RN) Smoking Status: Former smoker alcohol intake: never substance use type: denies use current occupational status: unemployed Travel in the last 8 weeks: None Other Medical History Have you received the Flu Vaccine for this season: No Have you received the Pneumonia Vaccine: No Review of Systems Review of Systems Review of systems (narrative): Review of Systems Constitutional: Denies fever, chills, and sweats Eyes: Denies vision change/ pain Respiratory: Denies cough and shortness of breath Cardiovascular: Denies chest pain and lightheadedness Gastrointestinal: Denies abdominal pain or contractions. Denies nausea, vomiting. Genitourinary: Denies dysuria and incontinence Musculoskeletal: Denies shoulder pain and back pain Neurological: Denies change in speech or headaches Exam Data for Last 24 hours Vital signs and Labs for Last 24 Hours: Temp Pulse Resp BP Pulse Ox O2 Del Method 97.9 F 100 H 19 117/56 L 98 Room Air 11/02/24 04:17 11/02/24 04:17 11/02/24 04:17 11/02/24 04:17 11/02/24 04:17 11/02/24 04:17 Laboratory Results - last 24 hr 11/01/24 17:10: Urine Color Yellow, Urine Appearance Clear, Urine pH 6.0, Ur Specific [employer] 1.025, Urine Protein Negative, Urine Glucose (UA) Negative, Urine Ketones Negative, Urine Blood Negative, Urine Nitrate Negative, Urine Bilirubin Negative, Urine Urobilinogen 0.2, Ur Leukocyte Esterase Negative, Urine RBC 5-10, Urine WBC 3-5, Ur Squamous Epith Cells 10-20, Urine Bacteria 3+, Urine Mucus 2+, Urine Opiates Screen Negative, Urine Methadone Screen Negative, Ur Barbituates Screen Negative, Ur Phencyclidine Scrn Negative, Ur Amphetamines Screen Negative, U Benzodiazepines Scrn Negative, Urine Cocaine Screen Negative, U Marijuana (THC) Screen Negative 11/01/24 17:56: WBC 13.5 H, RBC 3.36 L, Hgb 9.7 L, Hct 29.5 L, MCV 87.8, MCH 28.9, MCHC 32.9, RDW 13.7, Plt Count 183, MPV 10.6 H, Neut % (Auto) 69.0, Lymph % (Auto) 17.6, [place] % (Auto) 8.0, Eos % (Auto) 0.6, Baso % (Auto) 0.5, Neut # (Auto) 9.3 H, Lymph # (Auto) 2.4, [place] # (Auto) 1.1 H, Eos # (Auto) 0.1, Baso # (Auto) 0.1, Blood Type O Positive, Antibody Screen Negative 11/02/24 11:36: Sodium 135 L, Potassium 3.9, Chloride 108 H, Carbon Dioxide 20 L , Anion Gap 10.9, BUN 5 L, Creatinine 0.50 L, Estimated Creat Clear 200, Estimated GFR 148, Est GFR ( Amer) 179, Glucose 87, Calcium 8.2 L, Magnesium 1.6, Total Bilirubin 0.2, AST 26, ALT 16, Alkaline Phosphatase 109, Total Protein 5.7 L, Albumin 3.0 L, Globulin 2.7, Albumin/Globulin Ratio 1.1 I & O for Last 24 hours: Intake & Output 02/23/10/31/24 11/01/24 11/02/24 23:59 23:59 23:59 23:59 Weight 165 lb *Routine HEENT Exam Head: Present normocephalic and atraumatic Eye: Present EOMI ENT: Present mucous membranes moist *Routine Respiratory Exam Respiratory: Present normal respiratory effort, able to speak in complete sentences and symmetric chest movement; Absent accessory muscle use *Routine Cardiovascular Exam Cardiovascular: Present tachycardia *Routine Abdominal Exam Abdominal: Present soft and normoactive bowel sounds; Absent tenderness, distended, rebound or guarding *Routine Rectal Exam Rectal:: deferred *Routine Genitalia Exam Genitalia:: normal female Meds Home Medications and Allergies Home Medications ?Medication ?Instructions ?Recorded ?Confirmed ?Type aspirin 81 mg tablet,delayed 81 mg PO DAILY #30 tabs 08/09/24 11/01/24 Rx release (Adult Aspirin Regimen) acetaminophen 500 mg tablet 1,000 mg (2 x 500 mg) PO Q8HP PRN 11/02/24 Rx Fever Or Mild Pain (1-3) #60 tabs calcium carbonate (Tums) 1,000 mg (5 x 200 mg calcium (500 11/02/24 Rx mg)) PO Q4HP PRN INDIGESTION #60 tabs famotidine 20 mg tablet 20 mg PO BID #60 tabs 11/02/24 Rx hydroxyzine pamoate 25 mg capsule 50 mg (2 x 25 mg) PO HS #30 caps 11/02/24 Rx magnesium oxide 400 mg PO TID #90 caps 11/02/24 Rx nifedipine 10 mg capsule 10 mg PO Q6H #90 caps 11/02/24 Rx sertraline 25 mg tablet 50 mg (2 x 25 mg) PO DAILY #60 tabs 11/02/24 Rx New Prescriptions to Start Prescriptions: calcium carbonate [Tums] Aleta Velazquez acetaminophen Marcus,Aleta famotidine Marcus,Aleta hydroxyzine pamoate Marcus,Aleta magnesium oxide Marcus,Aleta nifedipine Marcus,Aleta sertraline Aleta Velazquez Allergies Allergy/AdvReac Type Severity Reaction Status Date / Time citalopram (From Celexa) Allergy Intermediate Hives Verified 11/01/24 22:01 medroxyprogesterone (From AdvReac Severe very heavy Verified 11/01/24 22:01 Depo-Provera) bleeding Hospital Course Hospital Course Hospital Course: Patient has already received steroids. She was admitted and given tocolytics. She is not having any contractions. She has not made any cervical change. She denies discharge home. Strict return precautions have been reviewed and she voiced understanding. Patient and significant other completed teach back and understood all discharge and return precautions Results Data Completed and Pending Labs on day of discharge: Labs from last 24 hours 11/02/24 11/01/24 11/01/24 11:36 17:56 17:10 WBC 13.5 H RBC 3.36 L Hgb 9.7 L Hct 29.5 L MCV 87.8 MCH 28.9 MCHC 32.9 RDW 13.7 Plt Count 183 MPV 10.6 H Neut % (Auto) 69.0 Lymph % (Auto) 17.6 [place] % (Auto) 8.0 Eos % (Auto) 0.6 Baso % (Auto) 0.5 Neut # (Auto) 9.3 H Lymph # (Auto) 2.4 [place] # (Auto) 1.1 H Eos # (Auto) 0.1 Baso # (Auto) 0.1 Sodium 135 L Potassium 3.9 Chloride 108 H Carbon Dioxide 20 L Anion Gap 10.9 BUN 5 L Creatinine 0.50 L Estimated Creat Clear 200 Estimated GFR 148 Est GFR ( Amer) 179 Glucose 87 Calcium 8.2 L Magnesium 1.6 Total Bilirubin 0.2 AST 26 ALT 16 Alkaline Phosphatase 109 Total Protein 5.7 L Albumin 3.0 L Globulin 2.7 Albumin/Globulin Ratio 1.1 Urine Color Yellow Urine Appearance Clear Urine pH 6.[address] [employer] 1.025 Urine Protein Negative Urine Glucose (UA) Negative Urine Ketones Negative Urine Blood Negative Urine Nitrate Negative Urine Bilirubin Negative Urine Urobilinogen 0.2 Ur Leukocyte Esterase Negative Urine RBC 5-10 Urine WBC 3-5 Ur Squamous Epith Cells 10-20 Urine Bacteria 3+ Urine Mucus 2+ Urine Opiates Screen Negative Urine Methadone Screen Negative Ur Barbituates Screen Negative Ur Phencyclidine Scrn Negative Ur Amphetamines Screen Negative U Benzodiazepines Scrn Negative Urine Cocaine Screen Negative U Marijuana (THC) Screen Negative Blood Type O Positive Antibody Screen Negative Discharge Plan Disposition Patient Disposition: Home, Self-Care Condition: Good Follow up Plan Follow up with: Aleta Velazquez DO [Staff Physician] - 11/07/24 2:45 pm Prescriptions/Medication Reconciliation: New nifedipine 10 mg Capsule 10 mg PO Q6H Qty: 90 1RF acetaminophen 500 mg Tablet 1,000 mg PO Q8HP PRN (Reason: Fever Or Mild Pain (1-3)) Qty: 60 0RF famotidine 20 mg Tablet 20 mg PO BID Qty: 60 0RF calcium carbonate [Tums] 200 mg calcium (500 mg) Tablet,Chewable 1,000 mg PO Q4HP PRN (Reason: INDIGESTION) Qty: 60 0RF hydroxyzine pamoate 25 mg Capsule 50 mg PO HS Qty: 30 0RF Continued aspirin [Adult Aspirin Regimen] 81 mg tablet,delayed release (DR/EC) 81 mg PO DAILY Qty: 30 3RF magnesium oxide 400 mg magnesium capsule 400 mg PO TID Qty: 90 3RF Changed sertraline 25 mg tablet 50 mg PO DAILY Qty: 60 0RF Discontinued sutbrnfpye-[id number] [Fioricet] 50-300-40 mg capsule 1 cap PO Q8H PRN (Reason: pain) Qty: 30 0RF progesterone micronized 200 mg capsule 200 mg vaginal HS Qty: 30 3RF Rx Instructions: Insert vaginally every night at bedtime. Problem Reconciliation Problems Reviewed?: Yes Patient Discharge Instructions ACTIVITY: Continue current activity DIET: regular diet Print Language: Citizen Of [place] Providers Primary Care Provider: Provider,Referral Admit Provider: Aleta Velazquez Attending Provider: Aleta Velazquez
[2024-11-02 14:23] LABS: RPR W/RFX Titers Nonreactive (Nonreactive)
== END 2024-11-02 13:30 | disposition home or self-care (01) ==
LOC: OBOUT 11-02 08:44 → OB 11-02 08:44
PROVIDERS: Admitting Provider Obstetrics & Gynecology; Visit Provider Obstetrics & Gynecology
DX: O60.03 Preterm labor without delivery, third trimester (principal); Z3A.34 34 weeks gestation of pregnancy; E83.42 Hypomagnesemia
CPT/HCPCS: 36415; 59025; 76816; 76819; 80053; 80307; 81001; 83735; 85025; 86592; 86850; 87086; 93005; G0378; J3105; J7120

== ENCOUNTER 2024-11-04 10:08 | Outpatient (CLI) | payer MEDICAID, SELFPAY ==
[2024-11-04 10:35] VITALS: BP 112/70; PULSE 100; RESP 20; TEMP 36.4; O2SAT 98
[2024-11-04 11:35] VITALS: BP 104/54; PULSE 97; RESP 20; O2SAT 97
[2024-11-04 12:35] VITALS: BP 108/61; PULSE 95; RESP 20; O2SAT 98
[2024-11-04 13:35] VITALS: BP 111/66; PULSE 92; RESP 20; O2SAT 98
[2024-11-04 14:35] VITALS: BP 111/62; PULSE 91; RESP 20; O2SAT 98
[2024-11-04] MEDS: MVI, ADULT NO.1 WITH VIT K 10 ML, THIAMINE HCL 100 MG, MAGNESIUM SULFATE 2 GM in LACTAT... 250 ML IV (14:35)
== END 2024-11-04 14:35 | disposition home or self-care (01) ==
LOC: INF 10:09
PROVIDERS: Visit Provider Obstetrics & Gynecology
DX: E61.2 Magnesium deficiency (principal)
CPT/HCPCS: 96365; 96366; J3411; J7120

== ENCOUNTER 2024-11-07 15:32 | Outpatient (CLI) | payer MEDICAID, SELFPAY ==
[2024-11-07 16:22] LABS: Albumin Level 3.5 g/dl (3.5-5.0); Chloride 109 mmol/L (98-107); Potassium 4.1 mmoL/L (3.5-5.1); Sodium 134 mmol/L (136-145)
[2024-11-07 16:25] LABS: Alanine Aminotransferase 15 U/L (12-78); Albumin/Globulin Ratio 1.2 (1.1-1.8); Alkaline Phosphatase 122 U/L (38-126); Anion Gap 11.1 mEq/L (5-15); Aspartate Amino Transferase 26 U/L (14-36); Bilirubin,Total 0.2 mg/dl (0.2-1.3); Blood Urea Nitrogen 6 mg/dl (7-17); Calcium 8.9 mg/dl (8.4-10.2); Carbon Dioxide 18 mmol/L (22.0-30.0); Estimated Glomerular Filt Rate 148 ml/min (>60); GFR (African American) 179 ML/MIN (>60); Glucose 94 mg/dl (74-100); Total Protein,Serum 6.5 g/dl (6.3-8.2)
[2024-11-10 10:46] LABS: Bile Acids 2.2 umol/L (0.0-10.0)
== END 2024-11-07 23:59 | disposition home or self-care (01) ==
LOC: LAB 15:33
PROVIDERS: Visit Provider Obstetrics & Gynecology
DX: L29.9 Pruritus, unspecified (principal); O09.299 Supervision of pregnancy with other poor reproductive or obstetric history, unspecified trimester; Z3A.35 35 weeks gestation of pregnancy
CPT/HCPCS: 36415; 80053; 82239

== ENCOUNTER 2024-11-08 18:16 | Outpatient (CLI) | payer MEDICAID, SELFPAY ==
[2024-11-08 18:24] VITALS: BP 121/75; PULSE 103; RESP 16; TEMP 37.1; O2SAT 95; BMI 29.3; BMI 29.8
[2024-11-08 18:56] LABS: Microscopic, Urine URINE MICROSCOPIC (MICROSCOPIC)
[2024-11-08 19:37] LABS: Appearance,Urine CLEAR (Clear); Bilirubin,Urine Negative (Negative); Blood, Urine Negative (Negative); Color,Urine YELLOW (Yellow); Glucose,Urine (UA) Negative (Negative); Ketones,Urine Negative (Negative); Leukocyte Esterase,Urine TRACE (Negative); Nitrate,Urine POSITIVE (Negative); Protein,Urine Negative (Negative); Specific Gravity, Urine 1.025 (1.005-1.030); Urobilinogen,Urine 0.2 EU/dl (0.2)
[2024-11-08] MEDS: LACTATED RINGERS 1000ML 1,000 ML 999 ML IV (21:00)
[2024-11-08 21:15] LABS: Bacteria,Urine 1+ /lpf
[2024-11-08] MEDS: CYCLOBENZAPRINE 10MG TABLET 10 MG PO (21:39)
[2024-11-08] MEDS: NIFEdipine 10MG CAPSULE 10 MG PO (21:39)
[2024-11-08] MEDS: ACETAMINOPHEN 500MG TAB 1000 MG PO (21:39)
== END 2024-11-08 23:59 | disposition home or self-care (01) ==
LOC: OBOUT 18:17 → OB 18:18
PROVIDERS: Visit Provider Obstetrics & Gynecology
DX: O60.03 Preterm labor without delivery, third trimester (principal); Z3A.35 35 weeks gestation of pregnancy
CPT/HCPCS: 59025; 81001; 87086; J7120

== ENCOUNTER 2024-11-11 22:28 | Outpatient (CLI) | payer MEDICAID, SELFPAY ==
[2024-11-11 22:35] VITALS: BMI 29.7
[2024-11-11 22:42] LABS: Microscopic, Urine URINE MICROSCOPIC (MICROSCOPIC)
[2024-11-11 22:46] LABS: Appearance,Urine CLEAR (Clear); Bilirubin,Urine Negative (Negative); Blood, Urine Negative (Negative); Color,Urine YELLOW (Yellow); Glucose,Urine (UA) Negative (Negative); Ketones,Urine Negative (Negative); Leukocyte Esterase,Urine Negative (Negative); Nitrate,Urine Negative (Negative); Protein,Urine 1+ (Negative); Specific Gravity, Urine >= 1.030 (1.005-1.030); Urobilinogen,Urine 0.2 EU/dl (0.2)
[2024-11-11] MEDS: LACTATED RINGERS 1000ML 1,000 ML 999 ML IV (22:54)
[2024-11-11 23:09] VITALS: BP 137/91; PULSE 118; RESP 17; TEMP 36.7; O2SAT 98; BMI 29.7
[2024-11-11 23:09] LABS: WBC,Urine Occasional #/hpf (0-3)
[2024-11-11 23:10] LABS: Bacteria,Urine Trace /lpf; Mucus,Urine Trace /lpf
== END 2024-11-12 02:00 | disposition home or self-care (01) ==
LOC: OBOUT 22:30 → OB 22:31
PROVIDERS: Visit Provider Nurse Practitioner Obstetrics & Gynecology
DX: O47.03 False labor before 37 completed weeks of gestation, third trimester (principal); Z3A.35 35 weeks gestation of pregnancy
CPT/HCPCS: 81001; G0463; J7120

== ENCOUNTER 2024-11-14 01:59 | Outpatient (CLI) | payer MEDICAID, SELFPAY ==
[2024-11-14 02:04] VITALS: BMI 29.8
[2024-11-14 02:12] VITALS: BP 128/93; PULSE 102; RESP 18; TEMP 36.8; O2SAT 100; BMI 29.8
[2024-11-14 02:27] LABS: Microscopic, Urine URINE MICROSCOPIC (MICROSCOPIC)
[2024-11-14 02:29] LABS: Appearance,Urine Clear (Clear); Bilirubin,Urine Negative (Negative); Blood, Urine Negative (Negative); Color,Urine Yellow (Yellow); Glucose,Urine (UA) Negative (Negative); Ketones,Urine Trace (Negative); Leukocyte Esterase,Urine Negative (Negative); Nitrate,Urine Negative (Negative); PH,Urine 7.5 (5.0-8.5); Protein,Urine Negative (Negative); Urobilinogen,Urine 0.2 EU/dl (0.2)
[2024-11-14 02:36] LABS: Fetal Membrane Rupture (Rapid) Negative (Negative)
[2024-11-14 02:40] LABS: Bacteria,Urine Trace /lpf; WBC,Urine Occasional #/hpf (0-3)
== END 2024-11-14 03:09 | disposition home or self-care (01) ==
LOC: OBOUT 02:01 → OB 02:02
PROVIDERS: Visit Provider Nurse Practitioner Obstetrics & Gynecology
DX: O47.03 False labor before 37 completed weeks of gestation, third trimester (principal); Z3A.36 36 weeks gestation of pregnancy
CPT/HCPCS: 81001; 84112; G0463

== ENCOUNTER 2024-11-14 19:55 | Outpatient (CLI) | payer MEDICAID, SELFPAY ==
[2024-11-14 20:00] VITALS: BP 113/69; PULSE 94; RESP 17; TEMP 36.8; O2SAT 98; BMI 29.7
[2024-11-14 20:45] VITALS: BMI 29.7
== END 2024-11-14 20:48 | disposition home or self-care (01) ==
LOC: OBOUT 19:57 → OB 19:57
PROVIDERS: Visit Provider Obstetrics & Gynecology
DX: O47.03 False labor before 37 completed weeks of gestation, third trimester (principal); Z3A.36 36 weeks gestation of pregnancy
CPT/HCPCS: G0463

== ENCOUNTER 2024-11-15 11:41 | Outpatient (CLI) | payer MEDICAID, SELFPAY ==
--- NOTE | 2024-11-15 11:44 | US_ITS ---
PROCEDURE: US OB BIOPHYSICAL PROFILE CLINICAL INDICATION: BPP/Growth with ELIZABETH COMPARISON: US US OB <= 14 WEEKS FETUS from 04/22/2024 US US OB FOLLOW UP from 06/29/2024 US US OB /MATERNAL DETAIL from 07/29/2024 US OB FOLLOW UP from 09/21/2024 US US OB TRANSVAGINAL from 10/19/2024 US OB BIOPHYSICAL PROFILE from 11/01/2024 FINDINGS: Transabdominal sonographic images of the uterus were obtained. From her established due date she is 36weeks 1day. The following parameters are obtained: Viable Fetus in the cephalic presentation with an anterior placenta grade 2. Average ultrasound age is 37weeks 1day Estimated weight 3,097g, 6 lb 13 oz Measurements: heart Rate = 144bpm BPD = 37weeks 0 days, 78 percentile HC = 38weeks 1day, 68 percentile AC = 37weeks 4days, 90 percentile FL = 35weeks 5days, 33 percentile HC/AC is 0.99 FL/BPD is 0.76 FL/AC is 0.21 76 percentile Amniotic fluid index: 8.32cm, MVP 6.15 cm. Qualitative AFV:2 Breathing movements: 2 Gross Body Movements: 2 Tone: 2 Biophysical profile score: 8 No obvious anomalies evident.Kidneys, bladder, stomach four-chamber heart, three-vessel cord appear normal. IMPRESSION: 1. Viable fetus in the cephalic presentation with an anterior placenta grade 2. 2. The fluid is within normal limits with an amniotic fluid index 8.32 cm, MVP 6.15 cm. 3. Biophysical profile is 8/8 with good breathing movement and movement seen. 4. There has been good interval growth with the fetus currently 76 percentile. 5. Limited anatomical scan appears normal. Dictated by: Russel Rea MD 11/15/2024 14:51 Russel Rea MD in OV 11/15/2024 14:51
== END 2024-11-15 23:59 | disposition home or self-care (01) ==
LOC: RAD 11:41
PROVIDERS: Visit Provider Obstetrics & Gynecology
DX: O26.873 Cervical shortening, third trimester (principal); O09.293 Supervision of pregnancy with other poor reproductive or obstetric history, third trimester; Z3A.36 36 weeks gestation of pregnancy
CPT/HCPCS: 76816; 76819; 86403

== ENCOUNTER 2024-11-15 16:32 | Outpatient (CLI) | payer MEDICAID, SELFPAY ==
[2024-11-15 16:52] VITALS: BMI 29.5
[2024-11-15 16:57] LABS: Microscopic, Urine URINE MICROSCOPIC (MICROSCOPIC)
[2024-11-15 17:18] VITALS: BP 116/77; PULSE 87; RESP 17; TEMP 36.7; O2SAT 97; BMI 29.5
[2024-11-15 17:33] LABS: Appearance,Urine Clear (Clear); Bilirubin,Urine Negative (Negative); Blood, Urine Negative (Negative); Color,Urine Yellow (Yellow); Glucose,Urine (UA) Negative (Negative); Ketones,Urine Negative (Negative); Leukocyte Esterase,Urine Trace (Negative); Nitrate,Urine Negative (Negative); Protein,Urine Negative (Negative); Urobilinogen,Urine 0.2 EU/dl (0.2)
[2024-11-15 18:40] LABS: Bacteria,Urine 2+ /lpf; RBC,Urine Occasional #/hpf (0-3)
== END 2024-11-15 18:49 | disposition home or self-care (01) ==
LOC: OBOUT 16:33 → OB 16:34
PROVIDERS: Visit Provider Obstetrics & Gynecology
DX: O60.03 Preterm labor without delivery, third trimester (principal); Z3A.36 36 weeks gestation of pregnancy
CPT/HCPCS: 81001; 87086; G0463

== ENCOUNTER 2024-11-18 09:02 | Inpatient (IN) | payer MEDICAID, SELFPAY ==
[2024-11-18 07:18] VITALS: BMI 29.8
[2024-11-18 07:27] VITALS: BP 125/82; PULSE 95; RESP 20; TEMP 36.6; O2SAT 97; BMI 29.3
[2024-11-18 07:46] LABS: Fetal Membrane Rupture (Rapid) Negative (Negative)
--- NOTE | 2024-11-18 09:17 | HMH.PHAINT1 ---
Pharmacy Intervention Comments: MEDICATION RECONCILIATION COMPLETED ON PATIENT USING EXTERNAL FILL HISTORY FROM PHARMACY. -ABHIJIT VYAS, MECHED
[2024-11-18 09:34] LABS: Basophils # 0.1 K/mm3 (0-0.2); Basophils % 0.6 % (0.1-2.0); Eosinophils # 0.1 K/mm3 (0.0-0.4); Eosinophils % 0.9 % (0.1-12.0); Hematocrit 30.5 % (37.0-47.0); Hemoglobin 9.8 g/dL (12.2-16.2); Lymphocytes % 24.9 % (10-50); Mean Corpuscular HGB Conc 32.1 g/dL (31.8-35.4); Mean Corpuscular Hemoglobin 27.8 pg (27.0-31.2); Mean Corpuscular Volume 86.4 fl (81-99); Mean Platelet Volume 11.2 fl (7.4-10.4); Monocytes % 8.4 % (1.7-9.3); Neutrophils # 7.5 K/mm3 (1.8-7.8); Neutrophils % 62.4 % (37.0-80.0); Platelet Count 211 K/mm3 (142-424); Red Blood Count 3.53 M/mm3 (4.20-5.40); Red Cell Distribution Width 14.1 % (11.5-17.5)
[2024-11-18 09:36] LABS: Microscopic, Urine URINE MICROSCOPIC (MICROSCOPIC)
[2024-11-18 09:50] LABS: Appearance,Urine Slightly Cloudy (Clear); Color,Urine Yellow (Yellow)
[2024-11-18 09:54] LABS: Bilirubin,Urine Negative (Negative); Blood, Urine Negative (Negative); Glucose,Urine (UA) Negative (Negative); Ketones,Urine Negative (Negative); Leukocyte Esterase,Urine Trace (Negative); Nitrate,Urine Negative (Negative); Protein,Urine Negative (Negative); Specific Gravity, Urine 1.024 (1.005-1.030); Urobilinogen,Urine 0.2 EU/dl (0.2)
[2024-11-18 10:10] VITALS: TEMP 36.6
[2024-11-18] MEDS: LACTATED RINGERS 1000ML 1,000 ML 500 ML IV ×2 (10:19→13:19)
[2024-11-18 10:36] LABS: Bacteria,Urine Trace /lpf; Mucus,Urine Trace /lpf; RBC,Urine Occasional #/hpf (0-3)
[2024-11-18] MEDS: AMPICILLIN SODIUM 2 GM in 0.9 % SODIUM CHLORIDE 100 ML IV (10:46)
[2024-11-18 12:07] VITALS: BP 121/81; PULSE 95; RESP 16; TEMP 36.7; O2SAT 99
[2024-11-18] MEDS: OXYTOCIN/RINGERS LACTATE 30 UNITS/500 ML BAG IV (12:26)
[2024-11-18] MEDS: DEXTROSE 5%-LACTATED RINGERS 1,000 ML 125 ML IV (12:26)
--- NOTE | 2024-11-18 13:43 | EXP.ANES.CKL ---
[facility] Disclaimer: The information contained in this section may have been updated after the patient was seen, as this information can be updated by other users. Medical History Hx of preeclampsia, prior , currently History of anxiety Hx of corrected congenital abnormality of eye Surgical History Hx of wisdom tooth extraction History of placement of ear tubes Family History Other Cancer Diabetes FHx: mental illness Heart attack Social History (Updated 11/18/24 @ 11:13 by Anna Chand RN) Smoking Status: Former smoker alcohol intake: never substance use type: denies use current occupational status: unemployed Travel in the last 8 weeks: None Have you lived/traveled outside US in past 30 days?: No Contact w/someone who lives/traveled outside US past 30 days?: No Exposure to someone with infectious disease in past 14 days?: No Do you have a fever (greater than 100.4 F or 38 C)?: No Have you tested positive for COVID-19: No Exposed to someone with COVID-19 in past 14 days?: No Do you have a sore throat?: No Do you have a cough?: No Do you have any weakness?: No Do you have any diarrhea?: No Are you experiencing any unusual bleeding?: No Do you have any muscle aches/pain?: No Do you have any abdominal pain?: No Are you experiencing loss of taste or smell?: No [facility] Anesthesia Checklist Patient Identification Patient Identification: Arm Band Structural Data Admitted From: Inpatient Planned Operative Procedure/s: Labor Epidural Consent for Planned Operative Procedure(s) Verified: Yes Verified Documents: Surgical Consent and History and Physical Additional verifications Anesthesia Reactions: No Neurological Assessment Level of Consciousness: Awake, Alert and Appropriate Anesthesia Plan Anesthesia Risk discussed: Yes Anesthesia Plan: Verified ASA Class: II Anesthesia Type: Epidural
[2024-11-18] MEDS: OXYTOCIN/RINGERS LACTATE 30 UNITS/500 ML BAG 999 UNITS IV (14:50)
[2024-11-18] MEDS: OXYTOCIN/RINGERS LACTATE 30 UNITS/500 ML BAG 40 UNITS IV (15:05)
[2024-11-18 15:08] LABS: Cord Blood PH 7.39 (7.35-7.45)
[2024-11-18 15:10] LABS: Cord Blood PH 7.28 (7.35-7.45)
[2024-11-18 16:11] VITALS: BP 109/58; PULSE 88; RESP 16; TEMP 36.9; O2SAT 99
--- NOTE | 2024-11-18 16:30 | EXP.DN ---
Delivery Note Delivery Date:: 11/18/24 Delivery Time:: 14:47 Anesthesia Type: Epidural Was labor medically induced?: No Induction method: AROM Gestational age (weeks): 37 delivered prior to 39 weeks?: Yes Justification for early elective delivery:: Active Labor at 1 minute: 7 at 5 minutes: 8 Delivery Procedure:: Preoperative diagnosis: 1. at 37 completed this weeks gestation, vertex 2. Rh positive 3. GBS unknown, Antibiotics adminstered 4. Active labor, advanced cervical dilation 5. Hx of preeclampsia Postoperative diagnosis: 1. at 37 completed this weeks gestation, vertex 2. Rh positive 3. GBS unknown, Antibiotics adminstered 4. Active labor, advanced cervical dilation 5. Hx of preeclampsia EBL: 150mL Specimen: 1. Cord blood 2. Cord gasses Findings: 1. Liveborn viable male infant: Guillermo garcia. Apgars 7/8 at 1 and 5 minutes respectively. Weight pending at time of dictation Complications: None Procedure: Nonoperative spontaneous vaginal delivery Ama Zhong is a 29-year-old -2-3-4 at 37 completed weeks gestation who presented with regular painful contractions and was noted to make change from 5 cm to 6 cm. She was in a significant amount of pain and was tearful on exam with such painful contractions. She was admitted for active labor and had artificial rupture membranes. After 2 hours she remained 6 cm and Pitocin was started for augmentation She received an epidural for anesthesia. She progressed to complete around 4 hours after artificial rupture. FOB desired to deliver and hand overhand delivery was completed. With effective maternal pushing there was a nonoperative spontaneous vaginal delivery at 1447. There was no nuchal cord. The anterior right shoulder delivered, followed by the posterior shoulder without dystocia. The body and lower extremities delivered without difficulty. The infant was bulb suctioned and was weakly crying following delivery. The was placed on the maternal abdomen and greater than one minute was appreciated for delayed cord clamping. The umbilical cord was doubly clamped and cut. Cord blood was collected and sent for routine testing. Arterial and venous cord gases were collected. The placenta delivered with cord traction and suprapubic contertraction. Pitocin was started. The uterus was firm and bleeding was minimal. The perineum, vaginal garza, cervix, and paraurethral area were inspected thoroughly and noted to be intact. There was a small left labial abrasion which was hemostatic not requiring repair. The patient tolerated the delivery well. All counts were correct by nursing. Mother and infant were doing well and bonding upon my leaving the delivery room. Placental Delivery Description: Spontaneous
--- NOTE | 2024-11-18 16:37 | P.HP_ITS ---
History of Present Illness *Admission Date: 11/18/24 *Reason for visit:: Active labor *History of present illness: Ama Zhong is a 29-year-old at 37 weeks and 0 days gestation who presented to labor and delivery with regular painful contractions. Her has been uncomplicated. She does have a history of preeclampsia. She has had contractions consistently for the last 3 weeks and has been to labor and delivery multiple times and noted to make cervical change with some of these triage visits. Today she presented for leakage of fluid. AmniSure was negative. On presentation patient endorsed good movement. O+, antibody negative, rubella immune, hepatitis B negative, hepatitis C negative, RPR negative, HIV negative 1 hour GTT: 140. Did not complete 3-hour GBS unknown [facility] Disclaimer: The information contained in this section may have been updated after the patient was seen, as this information can be updated by other users. Medical History Hx of preeclampsia, prior , currently History of anxiety Hx of corrected congenital abnormality of eye Surgical History Hx of wisdom tooth extraction History of placement of ear tubes Family History Other Cancer Diabetes FHx: mental illness Heart attack Social History (Updated 11/18/24 @ 11:13 by Anna Chand RN) Smoking Status: Former smoker alcohol intake: never substance use type: denies use current occupational status: unemployed Travel in the last 8 weeks: None Other Medical History Have you received the Flu Vaccine for this season: No Have you received the Pneumonia Vaccine: No Review of Systems Review of Systems Review of systems (narrative): Review of Systems Constitutional: Denies fever, chills, and sweats Eyes: Denies vision change/ pain Respiratory: Denies cough and shortness of breath Cardiovascular: Denies chest pain and lightheadedness Gastrointestinal: Admits abdominal pain with contractions. Endorses nausea, denies vomiting. Genitourinary: Denies dysuria and incontinence Musculoskeletal: Denies shoulder pain and back pain Neurological: Denies change in speech or headaches Meds Home Medications and Allergies Home Medications ?Medication ?Instructions ?Recorded ?Confirmed ?Type aspirin 81 mg tablet,delayed 81 mg PO DAILY #30 tabs 08/09/24 11/18/24 Rx release (Adult Aspirin Regimen) calcium carbonate (Tums) 1,000 mg (5 x 200 mg calcium (500 11/02/24 11/18/24 Rx mg)) PO Q4HP PRN INDIGESTION #60 tabs famotidine 20 mg tablet 20 mg PO BID #60 tabs 11/02/24 11/18/24 Rx hydroxyzine pamoate 25 mg capsule 50 mg (2 x 25 mg) PO HS #30 caps 11/02/24 11/18/24 Rx magnesium oxide 400 mg PO TID #90 caps 11/02/24 11/18/24 Rx nifedipine 10 mg capsule 10 mg PO Q6H #90 caps 11/02/24 11/18/24 Rx sertraline 50 mg tablet 50 mg PO DAILY 11/07/24 11/18/24 History New Prescriptions to Start Prescriptions: Allergies Allergy/AdvReac Type Severity Reaction Status Date / Time citalopram (From Celexa) Allergy Intermediate Hives Verified 11/17/24 09:16 medroxyprogesterone (From AdvReac Severe very heavy Verified 11/17/24 09:16 Depo-Provera) bleeding Exam Data for Last 24 hours Vital signs and Labs for Last 24 Hours: Temp Pulse Resp BP Pulse Ox O2 Del Method 98.0 F 95 H 16 121/81 99 Room Air 11/18/24 12:07 11/18/24 12:07 11/18/24 12:07 11/18/24 12:07 11/18/24 12:07 11/18/24 12:07 Laboratory Results - last 24 hr 11/18/24 07:15: Membrane Rupture Negative 11/18/24 08:50: WBC 12.0 H, RBC 3.53 L, Hgb 9.8 L, Hct 30.5 L, MCV 86.4, MCH 27.8, MCHC 32.1, RDW 14.1, Plt Count 211, MPV 11.2 H, Neut % (Auto) 62.4, Lymph % (Auto) 24.9, [place] % (Auto) 8.4, Eos % (Auto) 0.9, Baso % (Auto) 0.6, Neut # (Auto) 7.5, Lymph # (Auto) 3.0, [place] # (Auto) 1.0, Eos # (Auto) 0.1, Baso # (Auto) 0.1, Blood Type O Positive, Antibody Screen Negative 11/18/24 09:05: Urine Color Yellow, Urine Appearance Slightly cloudy, Urine pH 6.0, Ur Specific [place] 1.024, Urine Protein Negative, Urine Glucose (UA) Negative, Urine Ketones Negative, Urine Blood Negative, Urine Nitrate Negative, Urine Bilirubin Negative, Urine Urobilinogen 0.2, Ur Leukocyte Esterase Trace A, Urine RBC Occasional, Urine WBC 3-5, Ur Squamous Epith Cells 5-10, Urine Bacteria Trace, Urine Mucus Trace 11/18/24 15:02: Cord ABG pH 7.28 L 11/18/24 15:03: Cord ABG pH 7.39 I & O for Last 24 hours: Intake & Output 11/15/24 11/16/24 11/17/24 11/18/24 23:59 23:59 23:59 23:59 Weight 171 lb Narrative: General: patient is alert oriented in no acute distress and responds appropriately to questions. HEENT: NCAT, EOMI, moist mucous membranes, neck supple with full ROM Cardiovascular: RRR +S1/S2, no murmurs or rubs Pulmonary: Clear to auscultation bilaterally, nonlabored breathing, symmetric chest rise Abdominal: Gravid abdomen appropriate for gestation. No guarding, rebound, or tenderness noted. Extremities: trace edema, no tenderness or cyanosis noted Skin: Normal turgor, intact, warm. Negative for erythema, pallor, petechia, or lesions Neurologic: Negative for sensory or motor deficit Psychiatric: Normal affect, normal thought process, good judgment and insight, no depression or anxious mood appreciated. *Routine HEENT Exam Head: Present normocephalic and atraumatic Eye: Present EOMI, PERRL and normal accommodation; Absent conjunctival icterus, scleral injection, nystagmus or exophthalmos ENT: Present mucous membranes moist *Routine Respiratory Exam Respiratory: Present CTA bilaterally, normal respiratory effort, able to speak in complete sentences and symmetric chest movement; Absent accessory muscle use, decreased breath sounds, rales, respiratory distress, wheezes, distant breath sounds or diminished air movement *Routine Cardiovascular Exam Cardiovascular: Present RRR, Normal S1 and Normal S2; Absent murmur or gallop *Routine Abdominal Exam Abdominal: Present soft and normoactive bowel sounds; Absent tenderness, distended, rebound or guarding *Routine Rectal Exam Rectal:: deferred *Routine Genitalia Exam Genitalia:: normal female Assessment and Plan *Assessment and plan (1) Active labor: Status: Acute Category: Medical (2) Cervical shortening affecting : Status: Acute Category: Medical Code(s): O26.879 - Cervical shortening, unspecified trimester (3) Depression affecting : Status: Acute Category: Medical Code(s): O99.340 - Other mental disorders complicating , unspecified trimester; F32.A - Depression, unspecified (4) Short interval between pregnancies complicating in first trimester, antepartum: Status: Acute Category: Medical Code(s): O09.891 - Supervision of other high risk pregnancies, first trimester (5) Hx of preeclampsia, prior , currently : Status: Acute Category: Medical Code(s): O09.299 - Supervision of with other poor reproductive or obstetric history, unspecified trimester Plan #Active labor at 37 weeks gestation - Monitor vitals - Admit to L&D for labor monitoring and delivery - Plan for augmentation of labor with AROM and pitocin if required. - External FHR and TOCO monitor - Exam on admission: 5/50/-3 with cervical change to 6/70/-3 - GBS unknown, antibiotics initiated - Blood type: O+ - Continue GBS prophylaxis with penicillin G [id number] - Hemoglobin: 9.8, Plt: 211 - Plan for epidural anesthesia - Anticipate vaginal delivery of male : Guillermo #Anemia -Present on admission. Normocytic. Likely secondary to diet. Will monitor QBL closely. Will monitor vitals closely. Will complete a CBC day 1
[2024-11-18] MEDS: ACETAMINOPHEN 500MG TAB 1000 MG PO (20:07)
[2024-11-18] MEDS: SENNA 8.6MG TABLET 8.6 MG PO (20:07)
[2024-11-18] MEDS: IBUPROFEN 400 MG TABLET 800 MG PO (20:08)
[2024-11-18] MEDS: BENZOCAINE-MENTHOL SPRAY 56GM CAN TP (20:09)
[2024-11-18] MEDS: FAMOTIDINE 20MG TABLET 20 MG PO (22:19)
[2024-11-19] MEDS: ACETAMINOPHEN 500MG TAB 1000 MG PO ×3 (02:43→15:28)
[2024-11-19] MEDS: IBUPROFEN 400 MG TABLET 800 MG PO ×2 (04:10→11:01)
[2024-11-19 07:16] LABS: Basophils # 0.1 K/mm3 (0-0.2); Basophils % 0.6 % (0.1-2.0); Eosinophils # 0.2 K/mm3 (0.0-0.4); Eosinophils % 1.3 % (0.1-12.0); Hemoglobin 9.3 g/dL (12.2-16.2); Lymphocytes # 2.8 K/mm3 (0.7-4.5); Lymphocytes % 20.7 % (10-50); Mean Corpuscular HGB Conc 32.1 g/dL (31.8-35.4); Mean Corpuscular Hemoglobin 28.3 pg (27.0-31.2); Mean Corpuscular Volume 88.1 fl (81-99); Mean Platelet Volume 11.2 fl (7.4-10.4); Monocytes # 1.1 K/mm3 (0.1-1.0); Monocytes % 7.9 % (1.7-9.3); Neutrophils # 9.2 K/mm3 (1.8-7.8); Platelet Count 169 K/mm3 (142-424); Red Blood Count 3.29 M/mm3 (4.20-5.40); Red Cell Distribution Width 14.1 % (11.5-17.5); White Blood Count 13.6 K/mm3 (4.8-10.8)
[2024-11-19 07:52] VITALS: BP 122/72; PULSE 64; RESP 18; TEMP 36.6; O2SAT 99
[2024-11-19] MEDS: SERTRALINE 50MG TABLET 50 MG PO (08:56)
[2024-11-19] MEDS: FAMOTIDINE 20MG TABLET 20 MG PO ×2 (08:56→19:57)
[2024-11-19 12:40] LABS: RPR W/RFX Titers Nonreactive (Nonreactive)
--- NOTE | 2024-11-19 17:38 | PC.NURSE ---
patient resting comfortably at this time, pain controlled with PO meds, tolerating reg diet, up ad nate, reports small amount of vaginal bleeding, appropriate bonding noted with infant
[2024-11-19] MEDS: PRENATAL MULTIVITAMIN W/IRON 1 EACH PO (17:42)
--- NOTE | 2024-11-19 17:43 | P.PN_ITS ---
Subjective *Date: 11/19/24 *Time: 17:43 Interval history: Ama is a G8, P3235 day #1 following a normal spontaneous vaginal delivery at 37 weeks and 0 days gestation. was uncomplicated. Routine delivery and course. She is doing well, sitting up in bed, and visiting with family. Patient is complaining of tailbone pain. tried heating pad and ibuprofen without relief -Reports pain is well-controlled -Reports she is tolerating p.o. without nausea or vomiting. -Reports her lochia is scant. -Desires to use Nexplanon for contraception -She is breast-feeding her male infant -Ambulating, voiding difficulty or dysuria. Denies chest pain shortness of breath or pain in her legs. No further complaints at this time. Exam Data for Last 24 hours Vital signs and Labs for Last 24 Hours: Temp Pulse Resp BP Pulse Ox O2 Del Method 97.8 F 64 18 122/72 99 Room Air 11/19/24 07:52 11/19/24 07:52 11/19/24 07:52 11/19/24 07:52 11/19/24 07:52 11/19/24 07:52 Laboratory Results - last 24 hr 11/18/24 08:50: RPR w/Rflx to Titer Nonreactive 11/19/24 06:35: WBC 13.6 H, RBC 3.29 L, Hgb 9.3 L, Hct 29.0 L, MCV 88.1, MCH 28.3, MCHC 32.1, RDW 14.1, Plt Count 169, MPV 11.2 H, Neut % (Auto) 68.0, Lymph % (Auto) 20.7, [place] % (Auto) 7.9, Eos % (Auto) 1.3, Baso % (Auto) 0.6, Neut # (Auto) 9.2 H, Lymph # (Auto) 2.8, [place] # (Auto) 1.1 H, Eos # (Auto) 0.2, Baso # (Auto) 0.1 I & O for Last 24 hours: Intake & Output 11/16/24 11/17/24 11/18/24 11/19/24 23:59 23:59 23:59 23:59 Weight 171 lb Narrative: General: patient is alert oriented in no acute distress and responds appropriately to questions. Appears to be in minimal pain. Sitting up in the chair and doing well HEENT: NCAT, EOMI, moist mucous membranes, neck supple with full ROM Cardiovascular: RRR +S1/S2, no murmurs or rubs Pulmonary: Clear to auscultation bilaterally, nonlabored breathing, symmetric chest rise Abdominal: Fundus at the umbilicus, firm, and tenderness appropriate for the period. Extremities: trace edema, no tenderness or cyanosis noted Skin: Normal turgor, intact, warm. Negative for erythema, pallor, petechia, or lesions Neurologic: Negative for sensory or motor deficit Psychiatric: Normal affect, normal thought process, good judgment and insight, no depression or anxious mood appreciated. Constitutional Constitutional: no acute distress *Routine HEENT Exam Head: Present normocephalic Eye: Present EOMI and PERRL ENT: Present mucous membranes moist *Routine Neck Exam Neck: Present supple; Absent lymphadenopathy *Routine Respiratory Exam Respiratory: Present CTA bilaterally *Routine Cardiovascular Exam Cardiovascular: Present RRR *Routine Abdominal Exam Abdominal: Present soft and normoactive bowel sounds; Absent tenderness *Routine Extremities Exam Extremities: Absent cyanosis, clubbing or edema *Routine Skin Exam Skin: Present warm; Absent rash *Routine Neurological Exam Neurological: Present alert and oriented X3 Assessment and Plan *Assessment and plan (1) Active labor: Status: Acute Category: Medical (2) Cervical shortening affecting : Status: Acute Category: Medical Code(s): O26.879 - Cervical shortening, unspecified trimester (3) Depression affecting : Status: Acute Category: Medical Code(s): O99.340 - Other mental disorders complicating , unspecified trimester; F32.A - Depression, unspecified (4) Short interval between pregnancies complicating in first trimester, antepartum: Status: Acute Category: Medical Code(s): O09.891 - Supervision of other high risk pregnancies, first trimester (5) Hx of preeclampsia, prior , currently : Status: Acute Category: Medical Code(s): O09.299 - Supervision of with other poor reproductive or obstetric history, unspecified trimester (6) Anemia: Status: Acute Category: Medical Code(s): D64.9 - Anemia, unspecified (7) Pain in the coccyx: Status: Acute Category: Medical Code(s): M53.3 - Sacrococcygeal disorders, not elsewhere classified (8) Pelvic pain: Status: Acute Category: Medical Code(s): R10.2 - Pelvic and perineal pain Plan Stable. PPD#1 s/p -IP. -Doing well. VSS. Serial lochia and fundal checks. -Continue with perineal ice packs for discomfort -, male infant -Desires circumcision, consents signed and risks reviewed -Contraception: Nexplanon -Follow-up 2 weeks for routine visit -Dispo: home in 1-3 days pending mother/ status #Tailbone pain -Will try a dose of toradol, declines any narcotic pain medication -Will trial a donut pillow #Hx of preeclampsia -follow BP closely #Anemia -Present on admission. Normocytic. Likely secondary to diet. Will monitor QBL closely. Will monitor vitals closely. -Hemoglobin: 9.8--> 9.3 - asymptomatic anemia noted. Vitals stable. Continue monitoring. DC with Fe -O+/antibody negative
[2024-11-19] MEDS: KETOROLAC 30MG/ML VIAL 30 MG IV (19:56)
[2024-11-19] MEDS: WITCH HAZEL 40 PADS/BOX 1 EACH TP (19:57)
[2024-11-19] MEDS: SENNA 8.6MG TABLET 8.6 MG PO (19:57)
[2024-11-20] MEDS: ACETAMINOPHEN 500MG TAB 1000 MG PO ×4 (02:39→19:58)
[2024-11-20] MEDS: IBUPROFEN 400 MG TABLET 800 MG PO ×2 (08:17→18:14)
[2024-11-20] MEDS: SERTRALINE 50MG TABLET 50 MG PO (08:17)
[2024-11-20 08:35] VITALS: BP 116/56; PULSE 66; RESP 18; TEMP 36.7; O2SAT 99
--- NOTE | 2024-11-20 16:36 | ECG_ITS ---
APPROVED REPORT Exam: Resting ECG HR:60 bpm ECG Measurements Heart Rate 60 AXES IA 161 P 34 QRSd 82 QRS 1 QT 386 T 36 QTc 387 Conclusion SINUS RHYTHM WITH SINUS ARRHYTHMIA NORMAL ECG UNCONFIRMED REPORT Electronically signed by : Kyle Quintana MD 11/21/2024 08:52:14
--- NOTE | 2024-11-20 16:53 | P.PN_ITS ---
Subjective *Date: 11/20/24 *Time: 16:53 Interval history: Ama is a G8, P3235 day #2 following a normal spontaneous vaginal delivery at 37 weeks and 0 days gestation. was uncomplicated. Routine delivery and course. Patient continues to complain of anna lbone pain. tried heating pad and ibuprofen without relief. This morning she also is complaing of SOA and states it feels like she has just ran in the cold and cant catch her breath. Pt states after her last delivery she had significant orthopnea - she was evaluated early in by cardiology and is an established patient with them -Reports pain is well-controlled -Reports she is tolerating p.o. without nausea or vomiting. -Reports her lochia is scant. -Desires to use Nexplanon for contraception -She is breast-feeding her male infant -Ambulating, voiding difficulty or dysuria. Denies chest pain shortness of breath or pain in her legs. No further complaints at this time. Exam Data for Last 24 hours Vital signs and Labs for Last 24 Hours: Temp Pulse Resp BP Pulse Ox O2 Del Method 98.1 F 66 18 116/56 L 99 Room Air 11/20/24 08:35 11/20/24 08:35 11/20/24 08:35 11/20/24 08:35 11/20/24 08:35 11/20/24 08:35 I & O for Last 24 hours: Intake & Output 11/17/24 11/18/24 11/19/24 11/20/24 23:59 23:59 23:59 23:59 Weight 171 lb Microbiology Reports for the Last 24 Hours: Microbiology 11/18/24 09:05 Urine,Clean Catch Urine Culture - Final No growth. Narrative: General: patient is alert oriented in no acute distress and responds appropriately to questions. Appears to be in minimal pain. Sitting up in the chair and doing well HEENT: NCAT, EOMI, moist mucous membranes, neck supple with full ROM Cardiovascular: RRR +S1/S2, no murmurs or rubs. no abnormalities with auscultation during heart feeling funny and SOA episode. EKG to floor within 5 minutes of pt not feeling well. Pulmonary: Clear to auscultation bilaterally, nonlabored breathing, symmetric chest rise Abdominal: Fundus below the umbilicus, firm, and tenderness appropriate for the period. Extremities: trace edema, no tenderness or cyanosis noted Skin: Normal turgor, intact, warm. Negative for erythema, pallor, petechia, or lesions Neurologic: Negative for sensory or motor deficit Psychiatric: Normal affect, normal thought process, good judgment and insight, no depression or anxious mood appreciated. Constitutional Constitutional: no acute distress *Routine HEENT Exam Head: Present normocephalic Eye: Present EOMI and PERRL ENT: Present mucous membranes moist *Routine Neck Exam Neck: Present supple; Absent lymphadenopathy *Routine Respiratory Exam Respiratory: Present CTA bilaterally *Routine Cardiovascular Exam Cardiovascular: Present RRR *Routine Abdominal Exam Abdominal: Present soft and normoactive bowel sounds; Absent tenderness *Routine Extremities Exam Extremities: Absent cyanosis, clubbing or edema *Routine Skin Exam Skin: Present warm; Absent rash *Routine Neurological Exam Neurological: Present alert and oriented X3 Assessment and Plan *Assessment and plan (1) Active labor: Status: Acute Category: Medical (2) Cervical shortening affecting : Status: Acute Category: Medical Code(s): O26.879 - Cervical shortening, unspecified trimester (3) Depression affecting : Status: Acute Category: Medical Code(s): O99.340 - Other mental disorders complicating , unspecified trimester; F32.A - Depression, unspecified (4) Short interval between pregnancies complicating in first trimester, antepartum: Status: Acute Category: Medical Code(s): O09.891 - Supervision of other high risk pregnancies, first trimester (5) Hx of preeclampsia, prior , currently : Status: Acute Category: Medical Code(s): O09.299 - Supervision of with other poor reproductive or obstetric history, unspecified trimester (6) Anemia: Status: Acute Category: Medical Code(s): D64.9 - Anemia, unspecified (7) Pain in the coccyx: Status: Acute Category: Medical Code(s): M53.3 - Sacrococcygeal disorders, not elsewhere classified (8) Pelvic pain: Status: Acute Category: Medical Code(s): R10.2 - Pelvic and perineal pain (9) (spontaneous vaginal delivery): Status: Acute Category: Medical Code(s): O80 - Encounter for full-term uncomplicated delivery Plan Stable. PPD#2 s/p -IP. -Doing well. VSS. Serial lochia and fundal checks. -Continue with perineal ice packs for discomfort -, male infant -Desires circumcision, consents signed and risks reviewed -Contraception: Nexplanon -Follow-up 2 weeks for routine visit -Dispo: home tomorrow pending mother/infant status #Tailbone pain -Will try a dose of toradol, declines any narcotic pain medication -Will trial a donut pillow -No signifiacant improvement. -refer to PFPT at 2 weeks pp #shortness of air #Hx of preeclampsia -follow BP closely -Pt describes as heart feeling funny and SOA -EKG ordered #Anemia -Present on admission. Normocytic. Likely secondary to diet. Will monitor QBL closely. Will monitor vitals closely. -Hemoglobin: 9.8--> 9.3 - asymptomatic anemia noted. Vitals stable. Continue monitoring. DC with Fe -O+/antibody negative
[2024-11-20] MEDS: PRENATAL MULTIVITAMIN W/IRON 1 EACH PO (18:14)
[2024-11-20] MEDS: SENNA 8.6MG TABLET 8.6 MG PO (18:14)
[2024-11-20] MEDS: LANOLIN CREAM 40GM TP (19:58)
[2024-11-20] MEDS: FAMOTIDINE 20MG TABLET 20 MG PO (19:59)
[2024-11-21] MEDS: IBUPROFEN 400 MG TABLET 800 MG PO (04:31)
[2024-11-21 08:36] VITALS: BP 128/72; PULSE 64; RESP 18; TEMP 36.6; O2SAT 98
[2024-11-21] MEDS: ACETAMINOPHEN 500MG TAB 1000 MG PO (08:45)
--- NOTE | 2024-11-21 09:10 | P.DS_ITS ---
General Admission date:: 11/18/24 Discharge date: 11/21/24 HPI HPI HPI: PPD # 3 s/p Feeling well. Pain controlled. Breast feeding. Lochia is appropriate. Voiding without difficulty and passing flatus. Tolerating regular diet. Denies fever/chills, chest pain and shortness of breath. No headaches, vision changes, lightheadedness/dizziness. She admits to bilateral lower extremity swelling. No calf pain. Ambulating well ad nate. Hospital Course Hospital Course Hospital Course: Ama Zhong is a 29-year-old at 37 weeks and 0 days gestation who presented to labor and delivery with regular painful contractions. Her has been uncomplicated. She does have a history of preeclampsia. She has had contractions consistently for the last 3 weeks and has been to labor and delivery multiple times and noted to make cervical change with some of these triage visits. Today she presented for leakage of fluid. AmniSure was negative. On presentation patient endorsed good movement. GBS unknown She underwent augmentation of labor with amniotomy. She had a normal spontaneous vaginal delivery on 11/18/24 at 1447. She delivered a live female baby, Guillermo Alvarez weighing 7 lb 12 oz. Apgars 7/8 at 1 and 5 minutes respectively. EBL 150 mL. She did well . Pain controlled. Breast feeding. Light lochia. Voiding without difficulty and passing flatus. Tolerating regular diet. Denies fever/chills, chest pain and shortness of breath. No headaches, dizziness/lightheadedness or vision changes. Vital signs stable, afebrile. Heart regular rate and rhythm. Lungs clear to auscultation. Abdomen soft, nontender. She had +2 bilateral lower extremity edema. No calf pain. Ambulating well ad nate. Normal hospital course. She was discharged to home on PPD # 3 with instructions to follow-up in the office in 2 weeks or sooner if needed. Exam Data for Last 24 hours Vital signs and Labs for Last 24 Hours: Temp Pulse Resp BP Pulse Ox O2 Del Method 97.8 F 64 18 128/72 98 Room Air 11/21/24 08:36 11/21/24 08:36 11/21/24 08:36 11/21/24 08:36 11/21/24 08:36 11/21/24 08:36 I & O for Last 24 hours: Intake & Output 11/18/24 11/19/24 11/20/24 11/21/24 23:59 23:59 23:59 23:59 Weight 171 lb Microbiology Reports for the Last 24 Hours: Microbiology 11/18/24 09:05 Urine,Clean Catch Urine Culture - Final No growth. Constitutional Constitutional: no acute distress and cooperative *Routine HEENT Exam Head: Present normocephalic and atraumatic Eye: Absent conjunctivae pink ENT: Present mucous membranes moist *Routine Neck Exam Neck: Present full ROM *Routine Respiratory Exam Respiratory: Present CTA bilaterally and normal respiratory effort *Routine Cardiovascular Exam Cardiovascular: Present RRR *Routine Abdominal Exam Abdominal: Present soft; Absent tenderness or distended *Routine Rectal Exam Patient deferred: visual exam *Routine Exam Patient deferred: external exam *Routine Extremities Exam Extremities: Present edema (+2 bilateral lower extremity swelling) and full ROM; Absent calf tenderness *Routine Neurological Exam Neurological: Present alert, moving all extremities and normal speech Routine Psychiatric Exam Psychiatric: Present normal affect and cooperative DS: Diagnosis Discharge Diagnosis (1) Active labor: Status: Acute (2) Cervical shortening affecting : Status: Acute Code(s): O26.879 - Cervical shortening, unspecified trimester (3) Depression affecting : Status: Acute Code(s): O99.340 - Other mental disorders complicating , unspecified trimester; F32.A - Depression, unspecified (4) Short interval between pregnancies complicating in first trimester, antepartum: Status: Acute Code(s): O09.891 - Supervision of other high risk pregnancies, first trimester (5) Hx of preeclampsia, prior , currently : Status: Acute Code(s): O09.299 - Supervision of with other poor reproductive or obstetric history, unspecified trimester (6) Anemia: Status: Acute Code(s): D64.9 - Anemia, unspecified (7) Pain in the coccyx: Status: Acute Code(s): M53.3 - Sacrococcygeal disorders, not elsewhere classified (8) Pelvic pain: Status: Acute Code(s): R10.2 - Pelvic and perineal pain (9) (spontaneous vaginal delivery): Status: Acute Code(s): O80 - Encounter for full-term uncomplicated delivery Meds Home Medications and Allergies Home Medications ?Medication ?Instructions ?Recorded ?Confirmed ?Type famotidine 20 mg tablet 20 mg PO BID #60 tabs 11/02/24 11/18/24 Rx sertraline 50 mg tablet 50 mg PO DAILY 11/07/24 11/18/24 History ibuprofen 800 mg tablet 800 mg PO Q8H PRN pain #20 tabs 11/21/24 Rx New Prescriptions to Start Prescriptions: Rebeca Kaufman Allergies Allergy/AdvReac Type Severity Reaction Status Date / Time citalopram (From Celexa) Allergy Intermediate Hives Verified 11/17/24 09:16 medroxyprogesterone (From AdvReac Severe very heavy Verified 11/17/24 09:16 Depo-Provera) bleeding Discharge Plan Disposition Patient Disposition: Home, Self-Care Condition: Good Discharge Order Discharge Orders: Discharge Order (Routine); Ordered 11/21/24 Ordered By: Rebeca Lutz Follow up Plan Follow up with: Aleta Velazquez DO [Staff Physician] - 12/02/24 11:15 am Prescriptions/Medication Reconciliation: New ibuprofen 800 mg tablet 800 mg PO Q8H PRN (Reason: pain) Qty: 20 0RF Continued sertraline 50 mg tablet 50 mg PO DAILY Patient Comments: TAKE 1 TABLET BY MOUTH DAILY famotidine 20 mg Tablet 20 mg PO BID Qty: 60 0RF Discontinued aspirin [Adult Aspirin Regimen] 81 mg tablet,delayed release (DR/EC) 81 mg PO DAILY Qty: 30 3RF nifedipine 10 mg Capsule 10 mg PO Q6H Qty: 90 1RF calcium carbonate [Tums] 200 mg calcium (500 mg) Tablet,Chewable 1,000 mg PO Q4HP PRN (Reason: INDIGESTION) Qty: 60 0RF hydroxyzine pamoate 25 mg Capsule 50 mg PO HS Qty: 30 0RF magnesium oxide 400 mg magnesium capsule 400 mg PO TID Qty: 90 3RF Problem Reconciliation Problems Reviewed?: Yes Patient Discharge Instructions ACTIVITY: Limited activity DIET: continue same diet and regular diet Additional Instructions: Discharge: 1. Take 800 mg Ibuprofen every 8 hours as needed for pain. You can also take 500-1000 mg of Tylenol in between doses, every 6-8 hours. 2. Nothing in the vagina for 6 weeks - no intercourse, douching or tampons. No tub baths/hot tubs or swimming pools 3. Reasons to return to L&D or call On-Call doctor - fever (greater than 100.4) - heavy vaginal bleeding (soaking through 1 pad in less than 2 hours) - vaginal discharge (malodorous and/or purulent) - severe headaches not resolved by medication or rest and leg tenderness/edema 4. depression/blues - Normal to feel anxious/overwhelmed for first 2 weeks - Talk to your doctor if: severe anxiety, trouble bonding with baby, withdrawing from other family members, thoughts of harming yourself or others [facility] [phone] Patient Instructions: Depression, Hemorrhage, DI for Labor and Delivery, Vaginal , DI for Pre-eclampsia, H Post Discharge Instructions Print Language: Nigerien Providers Primary Care Provider: Provider,Referral Admit Provider: Aleta Velazquez Attending Provider: Aleta Velazquez
[2024-11-21] MEDS: SERTRALINE 50MG TABLET 50 MG PO (10:14)
== END 2024-11-21 11:15 | disposition home or self-care (01) | DRG 807 ==
LOC: OBOUT 09:02 → OB 09:02
PROVIDERS: Admitting Provider Obstetrics & Gynecology; Visit Provider Obstetrics & Gynecology
DX: O26.873 Cervical shortening, third trimester (principal); Z37.0 Single live birth; Z3A.37 37 weeks gestation of pregnancy; O99.344 Other mental disorders complicating childbirth; F32.A Depression, unspecified; O90.81 Anemia of the puerperium; D64.9 Anemia, unspecified; M53.3 Sacrococcygeal disorders, not elsewhere classified; O90.89 Other complications of the puerperium, not elsewhere classified
CPT/HCPCS: 36415; 59025; 81001; 82800; 84112; 85025; 86592; 86850; 87086; 93005; 94761; G0283; J0290; J1885; J3010; J7120